=== PATIENT | female | born 1955 | race Caucasian/White ===

== ENCOUNTER → 2020-11-02 06:52 | Outpatient (CLI) | payer MEDICARE, MEDICAID, SELFPAY ==
[2020-10-05 11:33] VITALS: BMI 23.6
--- NOTE | 2020-11-02 06:58 | ECHOD_ITS ---
Reason For Study: CAD/ASHD Procedure This was a 2D Doppler, Color Flow transthoracic echocardiogram. Bubble study performed. Exam performed in department. Left Ventricle Normal LV size. Left ventricular systolic function is normal. The estimated ejection fraction is 65 %. No regional wall motion abnormalities noted. Right Ventricle Normal RV size. Normal systolic function. Atria Normal left atrium. Normal right atrium. Bubble contrast study negative for right to left interatrial shunt. Mitral Valve Normal mitral valve. Tricuspid Valve Normal tricuspid valve. Mild tricuspid valve insufficiency. Aortic Valve Normal aortic valve. Trisinus/trileaflet aortic valve. Pulmonic Valve Normal pulmonic valve. Great Vessels Normal aortic root. The pulmonary artery is normal size. Normal inferior vena cava. Pericardium/Pleural No pericardial effusion. Medication 22 gauge I.V. with prn adaptor inserted into right arm. Performed a rapid injection of agitated mix of 9 cc saline and 1cc air to assess for atrial septal defect. MMode/2D Measurements & Calculations LVIDd: 4.2 cm IVSd: 0.97 cm Ao root diam: 3.1 cm LVIDs: 2.7 cm LVPWd: 0.96 cm LA dimension: 3.5 cm RVDd: 3.3 cm FS: 36.6 % LAV(MOD-bp): 48.0 ml LA A4 area: 13.1 cm2 RA A4 area: 10.9 cm2 LAV(MOD-bp) Indexed: 31.0 ml/m2 LAV(MOD-sp2): 50.7 ml LAV(MOD-sp4): 34.1 ml Time Measurements MV dec time: 0.33 sec Doppler Measurements & Calculations MV E max yury: 44.5 cm/sec Lat Peak E' Yury: 5.4 cm/sec Med Peak E' Yury: 4.7 cm/sec MV A max yury: 86.1 cm/sec E/E' lat: 8.2 E/E' med: 9.5 MV E/A: 0.52 MV V2 max: 107.3 cm/sec MV P1/2t max yury: 70.1 cm/sec Ao V2 max: 126.8 cm/sec MV max P.6 mmHg MV P1/2t: 89.5 msec Ao max P.4 mmHg MV V2 mean: 58.1 cm/sec MV dec slope: 229.3 cm/sec2 MV mean P.6 mmHg MV V2 VTI: 22.0 cm MVA(P1/2t): 2.5 cm2 LV V1 max: 110.2 cm/sec PA V2 max: 94.4 cm/sec TR max yury: 199.3 cm/sec LV V1 max P.9 mmHg TR max P.9 mmHg ECHO/Echo Complete Interpretation Summary Normal LV size. Left ventricular systolic function is normal. The estimated ejection fraction is 65 %. Bubble contrast study negative for right to left interatrial shunt. Ordering Physician: Thomas Guerrero Referring Physician: ANNELIESE GUERRA Performed By: Tani Carmona RCS
--- NOTE | 2020-11-02 17:23 | STRESSREP ---
Stress Test Report Exercise myocardial perfusion stress test 65-year-old with a history of coronary calcification. Stress protocol: Resting EKG demonstrates normal sinus rhythm with a rate of 79 bpm normal intervals are noted resting blood pressures running 62/1 102 mmHg. The patient exercised according to regular Rudy protocol for total duration of 7 minutes and 31 seconds. The maximum heart rate attained was 137 bpm which was 87% of maximum predicted heart rate the maximum workload was 9.3 metabolic equivalents. At rest there were no ST or T wave changes noted to suggest ischemia at peak exercise upsloping ST changes were noted with did not meet the criteria for ischemia. No clinical angina was noted. The test was terminated due to the target heart rate being achieved and dyspnea. The peak blood pressure was 170/82 mmHg with a rate-pressure product of 20,000. Myocardial perfusion protocol. 10.8 mCi of technetium 99m sestamibi was injected at rest. The patient exercised according to regular Rudy protocol for total duration of 7-1/2 minutes and at peak exercise 31.9 mCi of technetium 99m sestamibi was injected stress images were obtained stress and rest images were reconstructed and compared in the short axis vertical long and horizontal long axis. Gated images were also obtained. Perfusion SPECT analysis: Review of the stress images demonstrated normal uptake of tracer noted in all areas of the myocardium. The resting images similarly demonstrated normal uptake of tracer noted in all areas of the myocardium. No areas of reversibility are noted to suggest ischemia and no previous infarct is noted. Gated SPECT analysis: The gated ejection fraction is noted to be 76%. Conclusion: Normal exercise myocardial perfusion stress test. Good functional aerobic opacity. No clinical angina noted. Preserved ejection fraction.
== END ==
PROVIDERS: PCP Family Medicine; Referring Provider Internal Medicine Cardiovascular Disease; Visit Provider Internal Medicine Cardiovascular Disease
DX: I25.10 Atherosclerotic heart disease of native coronary artery without angina pectoris (principal); Z86.73 Personal history of transient ischemic attack (TIA), and cerebral infarction without residual deficits
CPT/HCPCS: 78452; 93017; 93306; A9500; A4216

== ENCOUNTER → 2022-07-25 | Outpatient (CLI) | payer MEDICARE, MEDICAID, SELFPAY ==
[2022-07-25 16:48] LABS: Absolute Lymphocyte Count 2.31 X10^3/uL (0.83-4.51); Absolute Neutrophil Count 6.3 X10^3/uL (2.0-7.7); Basophil# 0.05 X10^3/uL; Basophil% 0.5 % (0-1); Eosinophil# 0.15 X10^3/uL; Eosinophils% 1.6 % (0-5); Hematocrit 39.7 % (37-47); Hemoglobin 13.7 g/dL (12.0-15.0); Lymphocyte # 2.31 X10^3/ul (0.83-4.51); Lymphocyte % 24.1 % (19-41); Mean Corp Hgb Conc 34.5 g/dL (32-36); Mean Corpuscular Volume 92.8 fL (81-99); Mean Platelet Vol. 10.1 fl (6.2-12.0); Monocyte# 0.76 X10^3/uL; Monocyte% 7.9 % (0-10); NRBC Flagged by Analyzer 0 % (0-5); Neutrophil % 65.7 % (47-70); Platelet Count 362 K/mm3 (150-450); RBC Distribution Width CV 12.8 % (11.6-14.6); RBC Distribution Width SD 43.8 fl (35.1-43.9); Red Blood Count 4.28 M/mm3 (4.2-5.4); White Blood Count 9.6 K/mm3 (4.4-11.0)
[2022-07-25 17:14] LABS: BNP,B-Type NATRIURETIC PEPTIDE 15.9 pg/mL (0-100)
[2022-07-25 17:15] LABS: Anion Gap 7 (5-15); BUN 24 mg/dL (7-18); BUN/Creat Ratio 29.8 RATIO (10-20); Calcium,Total 9.6 mg/dL (8.5-10.1); Chloride 106 mmol/L (98-107); EST Glomerular Filtration Rate 76 mL/min (>60); Est Glom Filt Rate - Afr Amer 92 mL/min (>60); Glucose 107 mg/dL (74-106); Sodium Level 139 mmol/L (136-145)
== END | disposition home or self-care (01) ==
LOC: LAB 16:22
PROVIDERS: PCP Family Medicine; Referring Provider Nurse Practitioner Gerontology; Visit Provider Nurse Practitioner Gerontology
DX: R06.00 Dyspnea, unspecified (principal)
CPT/HCPCS: 36415; 80048; 83880; 85025

== ENCOUNTER → 2022-08-16 | Outpatient (CLI) | payer MEDICARE, MEDICAID, SELFPAY ==
--- NOTE | 2022-08-16 10:41 | ECHOD_ITS ---
Version 2 Reason For Study: DYSPNEA Procedure This was a 2D Doppler, Color Flow transthoracic echocardiogram. Myocardial strain analysis was performed in this exam to aid in the assessment of cardiac function. Exam performed in department. Left Ventricle Normal LV size. Left ventricular systolic function is normal. The estimated ejection fraction is 58 %. Stage 1 diastolic dysfunction. No regional wall motion abnormalities noted. Right Ventricle Normal RV size. Normal systolic function. Atria Normal left atrium. Normal right atrium. Mitral Valve Normal mitral valve. Tricuspid Valve Normal tricuspid valve. Aortic Valve Normal aortic valve. Trisinus/trileaflet aortic valve. Pulmonic Valve Normal pulmonic valve. Great Vessels Normal aortic root. The pulmonary artery is normal size. Normal inferior vena cava. Pericardium/Pleural Trivial pericardial effusion. MMode/2D Measurements & Calculations LVIDd: 4.3 cm IVSd: 0.96 cm Ao root diam: 3.3 cm LVIDs: 3.0 cm LVPWd: 1.0 cm RVDd: 3.2 cm FS: 31.7 % LAV(MOD-bp): 42.6 ml LA A4 area: 15.8 cm2 LA dimension(2D): 3.6 cm LAV(MOD-bp) Indexed: 19.5 ml/m2 LAV(MOD-sp2): 40.8 ml LAV(MOD-sp4): 40.8 ml RA A4 area: 12.1 cm2 Time Measurements MV dec time: 0.19 sec Doppler Measurements & Calculations MV E max yury: 74.5 cm/sec Lat Peak E' Yury: 7.6 cm/sec Med Peak E' Yury: 6.1 cm/sec MV A max yury: 88.3 cm/sec E/E' lat: 9.9 E/E' med: 12.2 MV E/A: 0.84 MV dec slope: 394.3 cm/sec2 Ao V2 max: 131.4 cm/sec LV V1 max: 117.6 cm/sec Ao max P.9 mmHg LV V1 max P.5 mmHg Ao V2 mean: 91.2 cm/sec LV V1 mean P.9 mmHg Ao mean P.8 mmHg LV V1 mean: 80.2 cm/sec Ao V2 VTI: 30.5 cm LV V1 VTI: 26.8 cm AV (velocity ratio): 0.88 PA V2 max: 98.2 cm/sec PI dec slope: 151.5 cm/sec2 ECHO/Echo Complete Interpretation Summary Normal LV size. Left ventricular systolic function is normal. The estimated ejection fraction is 58 %. Trivial pericardial effusion. Stage 1 diastolic dysfunction. The global longitudinal strain is normal. The global longitudinal strain = -18. 3 % (normal). Ordering Physician: Elly Post Referring Physician: Rosy Lazo Performed By: Domo, Marley, RDCS, RVT
== END | disposition home or self-care (01) ==
LOC: CVS 10:40
PROVIDERS: PCP Family Medicine; Visit Provider Nurse Practitioner Gerontology
DX: R06.00 Dyspnea, unspecified (principal); I31.31 Malignant pericardial effusion in diseases classified elsewhere
CPT/HCPCS: 93306

== ENCOUNTER 2023-04-02 15:17 | Inpatient (IN) | payer MEDICARE, MEDICAID, SELFPAY ==
[2023-04-02] VITALS (9 sets, daily range): BP systolic 137–151; BP diastolic 81–112; PULSE 74–106; RESP 12–19; TEMP 36.6; O2SAT 94–99; BMI 24.5; BMI 23.8
--- NOTE | 2023-04-02 15:37 | EKG12_ITS ---
Test Reason : CP Blood Pressure : / mmHG Vent. Rate : 080 BPM Atrial Rate : 080 BPM P-R Int : 120 ms QRS Dur : 088 ms QT Int : 364 ms P-R-T Axes : 046 002 069 degrees QTc Int : 419 ms Normal sinus rhythm with sinus arrhythmia Nonspecific ST and T wave abnormality Abnormal ECG Confirmed by KEYLA BARBOSA, BRIDGETTE ([id number]), news editor FARA BELLAMY ([id number]) on 04/08/2023 10:34:49 AM Referred By: Confirmed By:REGINO RAMIRES MD
--- NOTE | 2023-04-02 15:40 | RAD_ITS ---
STUDY: X-RAY CHEST REASON FOR EXAM: Female, 67 years old. chest pain TECHNIQUE: AP portable COMPARISON: None. FINDINGS: The lungs are clear and expanded. There is no demonstrated pleural abnormality. Normal size heart. Normal mediastinum and jj. Normal visualized pulmonary arteries. Mildly calcified aortic arch and descending thoracic aorta. Normal visualized thoracic spine. Normal visualized ribs, clavicles, and shoulders. There is no demonstrated abnormality of the visualized soft tissue structures of the upper abdomen. RAD/Chest 1 View (Portable) IMPRESSION: No acute cardiopulmonary pathology Electronically Signed: Federico Guzmán MD at 16:26 EST ,
--- NOTE | 2023-04-02 15:43 | ED.VIS.CHEST ---
HPI History of Present Illness Chief Complaint: Chest Pain Informant: patient Onset/Context/Timing Onset: Days (5) Activity at onset: gradual and onset Timing: Continuous Quality: Positive for Heaviness and Pressure Location: Substernal Current Severity: Moderate Maximum Severity: Severe Worsened By: Exertion and - (Lying supine); Not Worsened By Breathing Relieved By: Nothing Associated Symptoms: Positive for Dyspnea; Negative for Nausea, Vomiting, Diaphoresis, Cough, Fever or Lightheadedness Narrative Narrative: Patient has been having nonpleuritic substernal chest heaviness and pressure since this past week. The day after having the pain started, she was seen at an outside ER, [place], [place], told her enzymes were negative her EKG and chest x-ray were okay and she was stable to follow-up. She been having discomfort ever since. She states that at 1 point was radiating into her left upper extremity for the most part has not done that. 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 Patient does not have a history of coronary disease that she knows of. 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 She states she also has a history of reflux and a hiatal hernia, initially for this discomfort she was using Mylanta and asked to be put on additional Prilosec, she states that helped a little. The discomfort has persisted. She has been dyspneic with exertion for the last couple months. She denies any leg edema or orthopnea. No cough or fevers. [facility] Medical History Asthma Crenshaw esophagus COPD (chronic obstructive pulmonary disease) Coronary artery calcification seen on CAT scan (07/2020) Emphysema of lung GERD (gastroesophageal reflux disease) Hiatal hernia History of Lindo's palsy History of bronchitis History of CVA (cerebrovascular accident) History of kidney stones History of Lyme disease History of pleural effusion History of pneumonia History of TIA (transient ischemic attack) (06/2018) Hyperlipidemia IBS (irritable bowel syndrome) Insomnia Osteoarthritis Panlobular emphysema Peptic ulcer disease Pericardial effusion PTSD (post-traumatic stress disorder) Pulmonary nodule Thyroid nodule Home Medications albuterol sulfate 90 mcg/actuation aerosol inhaler 2 puff inhalation Q6H PRN 09/23/20 [History Last Taken Unknown] baclofen 10 mg tablet 10 mg PO QHS 09/23/20 [History Last Taken Unknown] fluticasone 500 mcg-salmeterol 50 mcg/dose blistr powdr for inhalation (Advair Diskus) 1 inh inhalation BID 09/23/20 [History Last Taken Unknown] magnesium oxide 500 mg capsule 500 mg PO DAILY 09/23/20 [History Last Taken Unknown] meloxicam 15 mg tablet (Mobic) 15 mg PO DAILY 09/23/20 [History Last Taken Unknown] montelukast 10 mg tablet (Singulair) 10 mg PO DAILY 09/23/20 [History Last Taken Unknown] omeprazole 20 mg tablet,delayed release 20 mg PO DAILY 09/23/20 [History Last Taken Unknown] vitamin B complex (B Complex-Vitamin B12 tablet) 1 tab PO DAILY 09/23/20 [History Last Taken Unknown] dicyclomine 10 mg capsule 10 mg PO DAILY PRN 10/05/20 [History Last Taken Unknown] vitamin E 200 unit capsule 200 unit PO DAILY 10/05/20 [History Last Taken Unknown] aspirin 81 mg tablet,delayed release (Adult Aspirin Regimen) 81 mg PO .qod 02/16/21 [History Last Taken Unknown] ipratropium 0.5 mg-albuterol 3 mg (2.5 mg base)/3 mL nebulization soln 3 ml continuous nebulization BID 11/13/21 [History Last Taken Unknown] calcium carbonate 600 mg-vitamin D3 25 mcg (1,000 unit) capsule 2 cap PO DAILY 11/14/21 [History Last Taken Unknown] cholecalciferol (vitamin D3) 125 mcg (5,000 unit) capsule 125 mcg PO DAILY 11/14/21 [History Last Taken Unknown] amlodipine 2.5 mg tablet 5 mg PO DAILY 07/25/22 [History Last Taken Unknown] coenzyme Q10 75 mg capsule (Ultra CoQ10) 100 mg PO DAILY 07/25/22 [History Last Taken Unknown] diphenhydramine HCl 25 mg capsule (Benadryl) 25 mg PO QHS PRN 07/25/22 [History Last Taken Unknown] garlic 1,000 mg capsule (garlic oil) 2,000 mg PO DAILY 07/25/22 [History Last Taken Unknown] ipratropium 0.5 mg-albuterol 3 mg (2.5 mg base)/3 mL nebulization soln 3 ml inhalation Q6H PRN 07/25/22 [History Last Taken Unknown] rosuvastatin 20 mg tablet (Crestor) 20 mg PO DAILY 07/25/22 [History Last Taken Unknown] Allergy/AdvReac Type Severity Reaction Status Date / Time epinephrine Allergy Severe Tachychardi Verified 04/02/23 15:38 a/Syncope pregabalin [From Lyrica] Allergy Severe Facial&Oral Verified 04/02/23 15:38 Swelling tizanidine [From Zanaflex] Allergy Severe Anaphylaxis Verified 04/02/23 15:38 atorvastatin [From Lipitor] AdvReac Severe Pain in BL Verified 04/02/23 15:38 arms hydroxyzine [From Vistaril] AdvReac Severe Inrease in Verified 04/02/23 15:38 BP Sulfa (Sulfonamide AdvReac Severe Anaphylaxis Verified 04/02/23 15:38 Antibiotics) temazepam [From Restoril] AdvReac Severe Facial & Verified 04/02/23 15:38 Oral Swelling zafirlukast [From Accolate] AdvReac Severe Abdominal Verified 04/02/23 15:38 pain & SOB furosemide [From Lasix] AdvReac Unknown Muscle Verified 04/02/23 15:38 Cramps misoprostol [From Arthrotec] AdvReac Unknown Liver Verified 04/02/23 15:38 Damage morphine AdvReac Unknown 'Insane' Verified 04/02/23 15:38 oseltamivir [From Tamiflu] AdvReac Unknown strips Verified 04/02/23 15:38 skin off throat' diclofenac AdvReac unkown Verified 04/02/23 15:38 [From Inflatherm (diclofenac-trolam)] trolamine salicylate AdvReac unkown Verified 04/02/23 15:38 [From Inflatherm (diclofenac-trolam)] Family History Mother COPD (chronic obstructive pulmonary disease) Lupus Father Glioblastoma Grandmother Pancreatic cancer Grandmother Breast cancer Grandfather Heart disease Aunt Cancer Aunt Cancer Surgical History History of breast surgery History of section History of cholecystectomy History of colonoscopy History of esophagogastroduodenoscopy History of eye surgery History of facial surgery History of herniorrhaphy History of repair of rectocele History of tonsillectomy History of vaginal surgery Social History Smoking Status: Former smoker pack-years: 31 Tobacco: How many years used: 21 Electronic Cigarette Use: not used how long ago did patient quit smoking: Quit in 1989 second hand exposure: Yes alcohol intake: current alcohol intake frequency: a few times a month Alcohol type: wine substance use type: does not use ROS ROS ED Constitutional Constitutional ED: Denies chills or fever(s) Eyes Eyes: Denies change in vision or diplopia ENT ENT ED: Denies rhinorrhea or sore throat Cardiovascular Cardiovascular: Reports chest pain; Denies orthopnea or palpitations Respiratory/Chest Respiratory/Chest: Reports dyspnea on exertion; Denies cough or orthopnea Gastrointestinal Gastrointestinal: Denies abdominal pain, diarrhea, nausea or vomiting Genitourinary Genitourinary ED: Denies dysuria or hematuria Musculoskeletal Musculoskeletal: Denies back pain or neck pain Integumentary Denies abscess or rash Neurologic Neurologic: Denies headache(s), paresthesias or weakness Psychiatric Psychiatric: Denies suicidal ideation or suicidal thoughts EXAM Physical Exam Const Vital Signs: 04/02/23 15:17 04/02/23 15:17 04/02/23 15:36 Temperature 97.8 F Temperature Source Temporal Pulse Rate 87 84 Respiratory Rate 18 19 H Respiratory Effort Short of Breath Blood Pressure 138/99 H 137/112 H Blood Pressure Mean 112 120 Pulse Ox 99 98 Oxygen Delivery Method Room Air 04/02/23 15:37 04/02/23 15:47 04/02/23 16:16 Temperature Temperature Source Pulse Rate 80 79 Respiratory Rate 12 Respiratory Effort Blood Pressure 142/92 H 150/82 H Blood Pressure Mean 104 Pulse Ox 98 Oxygen Delivery Method Room Air Room Air Positive well nourished and well developed General Appearance ED: well developed and NAD HEENT Reports moist mucous membranes normocephalic and atraumatic Eyes PERRL and EOMs intact bilaterally Neck full ROM, supple and no JVD Resp normal respiratory effort and clear to auscultation bilaterally Cardio regular rate, regular rhythm and no murmurs GI non-tender and non-distended Auscultation: normoactive bowel sounds Palpation: soft Back/Spine no CVA tenderness General Back: other FROM Extremity normal to inspection General Extremety ED: Negative for edema, pulses abnormal or tenderness General Extremity: Negative for edema or pulses abnormal Neuro oriented x3, CN's II-XII intact bilaterally and no sensory deficits noted Sensorium / Orientation: awake and alert Motor Exam: strength 5/5 throughout Skin no rashes or lesions noted and no wounds Heart Score History: Highly Suspicious ECG: Nonspecific Repolarization Age: >/= 65 years Risk Factors: 1 or 2 Risk Factors Troponin: >/=3 x Normal Limit Score: 8 MDM MDM MDM Narrative Medical decision making narrative: Chest x-ray may show some ST depressions in the septal lateral leads, but no reciprocal changes to suggest a STEMI. Her HS troponin I came back elevated at almost 5000, much higher than her equivalent high-sensitivity troponin T measurements were 3-4 days ago. Her BNP is a little elevated nonspecific. She clinically is not in failure. This is all consistent with a NSTEMI. 1 view chest x-ray on my interpretation appears normal, I do not not see evidence of cardiomegaly to suggest a big pericardial effusion, and she does not have any clinical exam signs of tamponade. After 1 sublingual nitroglycerin, she has chest pain-Free, paste is placed on her chest, and after discussing with Dr. Goodrich, we will place her on heparin drip and admit her to the hospital. History & Record Review Additional record(s) reviewed:: Prior outpatient record (From ED visit [facility] 03/29/2023, D-dimer within normal limits, proBNP 528, high-sensitivity troponin T measurements 48, 45, 44) Lab Data Attestation: I reviewed the patient's lab results. Labs: Laboratory Results - last 24 hr 04/02/23 15:37 WBC 12.0 H RBC 4.53 Hgb 14.3 Hct 43.3 MCV 95.6 MCH 31.6 MCHC 33.0 RDW Std Deviation 46.4 H RDW Coeff of Day 13.1 Plt Count 391 MPV 10.3 Immature Gran % (Auto) 0.200 Neut % (Auto) 74.2 H Lymph % (Auto) 18.0 L [place] % (Auto) 5.7 Eos % (Auto) 1.4 Baso % (Auto) 0.5 Absolute Neuts (auto) 8.9 H Absolute Lymphs (auto) 2.17 Nucleated RBC % 0 Sodium 139 Potassium 3.7 Chloride 106 Carbon Dioxide 26.0 Anion Gap 7 BUN 14 Creatinine 0.80 Estim Creat Clear Calc 52.20 Est GFR (MDRD) Af Amer 92 Est GFR (MDRD) Non-Af 76 BUN/Creatinine Ratio 17.4 Glucose 108 H Calcium 10.0 Troponin I High Sens 4921 H* B-Natriuretic Peptide 354.3 H Radiography Diagnostic Testing: Clinical Impression(s) from Imaging Studies Chest X-Ray 04/02/23 15:40 IMPRESSION: No acute cardiopulmonary pathology Electronically Signed: Federico Guzmán MD at 16:26 EST Reading Location ID and State: [address] [place] [address] Tel , Service support , Rhythm Strip Rhythm Strip: Sinus Rhythm Rate: 80 Ectopy: None EKG Initial EKG: Attestation: I personally reviewed and interpreted this EKG as follows: Interpretation: Sinus Rhythm, No Acute Injury Pattern and Non-Specific ST Changes (V3-V6) Management Discussion w/another healthcare provider: Hospitalist and Meteorology Teacher (cardiology Joleen) Critical Care Time Critical Care Time: Yes Critical care time (excluding procedures): 30-74 minutes (35 min), Including time spent:, Discussing w/Patient &/or Family/Paster Hat Lining, Discussing w/Consultants, Arranging Admission or Transfer and Performing Direct Patient Care at Bedside Discharge Plan Dx/Rx/DC Orders Clinical Impression: Non-ST elevation AL (NSTEMI) Disposition Disposition: Acute Care Hospital [facility]
[2023-04-02] MEDS: Aspirin 81 MG TAB.CHEW 324 MG PO (15:46)
[2023-04-02] MEDS: Nitroglycerin SL (ED/IMG/CATH) 0.4 MG TABLET SL (15:47)
[2023-04-02 15:48] LABS: Absolute Lymphocyte Count 2.17 X10^3/uL (0.83-4.51); Absolute Neutrophil Count 8.9 X10^3/uL (2.0-7.7); Basophil# 0.06 X10^3/uL; Basophil% 0.5 % (0-1); Eosinophil# 0.17 X10^3/uL; Eosinophils% 1.4 % (0-5); Hematocrit 43.3 % (37-47); Hemoglobin 14.3 g/dL (12.0-15.0); Lymphocyte # 2.17 X10^3/ul (0.83-4.51); Mean Corpuscular Hgb 31.6 pg (27.0-32.0); Mean Corpuscular Volume 95.6 fL (81-99); Mean Platelet Vol. 10.3 fl (6.2-12.0); Monocyte# 0.68 X10^3/uL; Monocyte% 5.7 % (0-10); NRBC Flagged by Analyzer 0 % (0-5); Neutrophil # 8.92 X10^3/uL (2.7-7.7); Neutrophil % 74.2 % (47-70); Platelet Count 391 K/mm3 (150-450); RBC Distribution Width CV 13.1 % (11.6-14.6); RBC Distribution Width SD 46.4 fl (35.1-43.9); Red Blood Count 4.53 M/mm3 (4.2-5.4)
[2023-04-02 16:09] LABS: BNP,B-Type NATRIURETIC PEPTIDE 354.3 pg/mL (0-100)
[2023-04-02 16:16] LABS: Anion Gap 7 (5-15); BUN 14 mg/dL (7-18); BUN/Creat Ratio 17.4 RATIO (10-20); Chloride 106 mmol/L (98-107); EST Glomerular Filtration Rate 76 mL/min (>60); Est Glom Filt Rate - Afr Amer 92 mL/min (>60); Glucose 108 mg/dL (74-106); Potassium 3.7 mmol/L (3.5-5.1); Sodium Level 139 mmol/L (136-145); Troponin-I HS (w/2H Reflex) 4921 pg/mL (3.0-54.0)
[2023-04-02] MEDS: Heparin Injection (Vial) 5,000 UNIT/ML VIAL 3500 UNIT IV (16:37)
[2023-04-02] MEDS: Nitroglycerin Oint 1 INCH PACKET TD (16:37)
[2023-04-02] MEDS: HEPARIN/D5w 25,000 UNITS 25,000 UNITS/250 ML IV.SOLN. 7 UNITS CONT INF (16:38)
--- NOTE | 2023-04-02 16:40 | PCM.HP.STD ---
HPI - General General Date of Admission: 04/02/23 HPI Narrative GRICELDA LYNCH, is a 67 F who presents to the hospital with progressive worsening of chest pressure/pain. She states that she first started feeling odd on but thought that it was due to her hiatal hernia and gastric reflux she then noticed on Saturday that it had gotten worse and was spreading up her right and left chest into her right and left arm. She went to an outside hospital and EKG was unremarkable and she states that the 3 troponins obtained were all normal she did notice at that time that her BNP was a little bit elevated but they discharged her home. Over the weekend she had no significant changes to her symptoms and then on Saturday and Saturday she started noticing just more chest pressure and more fatigue so she called her PCP on Saturday who ran some lab work that was not completely out of the ordinary and then she called her alignment mechanic today but while waiting to hear back decided to present to the ER. In the ER she had a troponin of 5000 with a nonischemic EKG. Cardiology was consulted and started her on heparin drip for non-STEMI. She did get Nitropaste placed and that resolved her symptoms she is now pain-free. [facility] Medical History Asthma Crenshaw esophagus COPD (chronic obstructive pulmonary disease) Coronary artery calcification seen on CAT scan (07/2020) Emphysema of lung GERD (gastroesophageal reflux disease) Hiatal hernia History of Lindo's palsy History of bronchitis History of CVA (cerebrovascular accident) History of kidney stones History of Lyme disease History of pleural effusion History of pneumonia History of TIA (transient ischemic attack) (06/2018) Hyperlipidemia IBS (irritable bowel syndrome) Insomnia Osteoarthritis Panlobular emphysema Peptic ulcer disease Pericardial effusion PTSD (post-traumatic stress disorder) Pulmonary nodule Thyroid nodule Home Medications albuterol sulfate 90 mcg/actuation aerosol inhaler 2 puff inhalation Q6H PRN SHORTNESS OF BREATH 09/23/20 [History Last Taken Unknown] baclofen 10 mg tablet 10 mg PO QHS MUSCLE SPASMS 09/23/20 [History Last Taken 04/01/23] fluticasone 500 mcg-salmeterol 50 mcg/dose blistr powdr for inhalation (Advair Diskus) 1 inh inhalation BID SHORTNESS OF BREATH 09/23/20 [History Last Taken 04/02/23] magnesium oxide 500 mg capsule 500 mg PO QHS SUPPLEMENT 09/23/20 [History Last Taken 04/01/23] meloxicam 15 mg tablet (Mobic) 15 mg PO QHS PAIN/SWELLING 09/23/20 [History Last Taken 04/01/23] montelukast 10 mg tablet (Singulair) 10 mg PO DAILY ALLERGIES 09/23/20 [History Last Taken 04/02/23] vitamin B complex (B Complex-Vitamin B12 tablet) 1 tab PO DAILY SUPPLEMENT 09/23/20 [History Last Taken 04/02/23] vitamin E 200 unit capsule 200 unit PO DAILY SUPPLEMENT 10/05/20 [History Last Taken 04/02/23] aspirin 81 mg tablet,delayed release (Adult [facility]in Regimen) [facility] [History Last Taken 03/31/23] calcium carbonate 600 mg-vitamin D3 25 mcg (1,000 unit) capsule 2 cap PO DAILY SUPPLEMENT 11/14/21 [History Last Taken 04/02/23] cholecalciferol (vitamin D3) 125 mcg (5,000 unit) capsule 125 mcg PO DAILY SUPPLEMENT 11/14/21 [History Last Taken 04/02/23] coenzyme Q10 75 mg capsule (Ultra CoQ10) 75 mg PO DAILY SUPPLEMENT 07/25/22 [History Last Taken 04/02/23] diphenhydramine HCl 25 mg capsule (Benadryl) 25 mg PO QHS SLEEP 07/25/22 [History Last Taken 04/01/23] garlic 1,000 mg capsule (garlic oil) 2,000 mg PO DAILY SUPPLEMENT 07/25/22 [History Last Taken 04/02/23] rosuvastatin 20 mg tablet (Crestor) 20 mg PO QHS CHOLESTEROL 07/25/22 [History Last Taken 04/01/23] albuterol sulfate 2.5 mg/3 mL (0.083 %) solution for nebulization 2.5 mg inhalation BID SHORTNESS OF BREATH 04/02/23 [History Last Taken 04/02/23] amlodipine 5 mg tablet 5 mg PO QHS BLOOD PRESSURE 04/02/23 [History Last Taken 04/01/23] carboxymethylcellulose 0.5 %-glycerin 0.9 % eye drops (Lubricant Eye (cmc-glycerin)) 1 drp EACH EYE QHS DRY EYE RELIEF 04/02/23 [History Last Taken 04/01/23] diazepam 2 mg tablet 1 mg PO DAILY PRN ANXIETY 04/02/23 [History Last Taken 04/01/23] ipratropium bromide 0.02 % solution for inhalation 0.5 mg inhalation BID SHORTNESS OF BREATH 04/02/23 [History Last Taken 04/02/23] omeprazole 20 mg capsule,delayed release 20 mg PO DAILY ACID REFLUX 04/02/23 [History Last Taken 04/02/23] Allergy/AdvReac Type Severity Reaction Status Date / Time epinephrine Allergy Severe Tachychardi Verified 04/02/23 15:38 a/Syncope pregabalin [From Lyrica] Allergy Severe Facial&Oral Verified 04/02/23 15:38 Swelling tizanidine [From Zanaflex] Allergy Severe Anaphylaxis Verified 04/02/23 15:38 atorvastatin [From Lipitor] AdvReac Severe Pain in BL Verified 04/02/23 15:38 arms hydroxyzine [From Vistaril] AdvReac Severe Inrease in Verified 04/02/23 15:38 BP Sulfa (Sulfonamide AdvReac Severe Anaphylaxis Verified 04/02/23 15:38 Antibiotics) temazepam [From Restoril] AdvReac Severe Facial & Verified 04/02/23 15:38 Oral Swelling zafirlukast [From Accolate] AdvReac Severe Abdominal Verified 04/02/23 15:38 pain & SOB furosemide [From Lasix] AdvReac Unknown Muscle Verified 04/02/23 15:38 Cramps misoprostol [From Arthrotec] AdvReac Unknown Liver Verified 04/02/23 15:38 Damage morphine AdvReac Unknown 'Insane' Verified 04/02/23 15:38 oseltamivir [From Tamiflu] AdvReac Unknown strips Verified 04/02/23 15:38 skin off throat' diclofenac AdvReac unkown Verified 04/02/23 15:38 [From Inflatherm (diclofenac-trolam)] trolamine salicylate AdvReac unkown Verified 04/02/23 15:38 [From Inflatherm (diclofenac-trolam)] Family History Mother COPD (chronic obstructive pulmonary disease) Lupus Father Glioblastoma Grandmother Pancreatic cancer Grandmother Breast cancer Grandfather Heart disease Aunt Cancer Aunt Cancer Surgical History History of breast surgery History of section History of cholecystectomy History of colonoscopy History of esophagogastroduodenoscopy History of eye surgery History of facial surgery History of herniorrhaphy History of repair of rectocele History of tonsillectomy History of vaginal surgery Social History Smoking Status: Former smoker pack-years: 31 Tobacco: How many years used: 21 Electronic Cigarette Use: not used how long ago did patient quit smoking: Quit in 1989 second hand exposure: Yes alcohol intake: current alcohol intake frequency: a few times a month Alcohol type: wine substance use type: does not use ROS Constitutional Constitutional: Reports fatigue; Denies chills, fever(s) or malaise Eyes Eyes: Denies blurry vision ENT HEENT: Denies headache(s) or nasal discharge Cardiovascular Cardiovascular: Reports chest pain and dyspnea on exertion; Denies syncope Respiratory/Chest Respiratory/Chest: Reports shortness of breath at rest; Denies cough or shortness of breath with exertion Gastrointestinal Gastrointestinal: Denies constipation, diarrhea, nausea or vomiting Genitourinary Genitourinary: Denies dysuria Neurologic Neurologic: Denies focal weakness, numbness or tremor(s) Psychiatric Psychiatric: Denies anxiety or depression Vital Signs Vital Signs Vital Signs: 04/02/23 15:17 04/02/23 15:17 04/02/23 15:36 Temperature 97.8 F Temperature Source Temporal Pulse Rate 87 84 Respiratory Rate 18 19 H Respiratory Effort Short of Breath Blood Pressure 138/99 H 137/112 H Blood Pressure Mean 112 120 Pulse Ox 99 98 Oxygen Delivery Method Room Air 04/02/23 15:37 04/02/23 15:47 04/02/23 16:16 Temperature Temperature Source Pulse Rate 80 79 Respiratory Rate 12 Respiratory Effort Blood Pressure 142/92 H 150/82 H Blood Pressure Mean 104 Pulse Ox 98 Oxygen Delivery Method Room Air Room Air Weight Weight: 129 lb 14.4 oz Body Mass Index (BMI) 24.5 Physical Exam Narrative General: Alert, Oriented x3, Cooperative, No apparent distress HEENT: Atraumatic, PERRLA, EOMI, Normocephalic Oral: Moist Mucosa Neck: Supple, No JVD Lungs: Diminished, Normal air movement, No rhonchi, No wheeze, fine bilateral crackles Cardiovascular: Regular rate, Regular Rhythm, Normal S1, Normal S2, No murmurs Abdomen: Soft, Non Tender, Non-Distended, No Hepato-splenomegaly Extremities: No edema, Capillary Refill Less than 3 Seconds Skin: No rashes, No breakdown Musculoskeletal: No Tenderness to Palpation of Joints or Extremities Neurological: Moves all extremities, Sensory exam intact to light touch and pain Psych/Mental Status: Normal Affect, Appropriate Results Lab / Micro Data 04/02/23 15:37 04/02/23 15:37 Labs: Laboratory Results - last 24 hr 04/02/23 15:37: WBC 12.0 H, RBC 4.53, Hgb 14.3, Hct 43.3, MCV 95.6, MCH 31.6, MCHC 33.0, RDW Std Deviation 46.4 H, RDW Coeff of Day 13.1, Plt Count 391, MPV 10.3, Immature Gran % (Auto) 0.200, Neut % (Auto) 74.2 H, Lymph % (Auto) 18.0 L, Aiken % (Auto) 5.7, Eos % (Auto) 1.4, Baso % (Auto) 0.5, Absolute Neuts (auto) 8.9 H, Absolute Lymphs (auto) 2.17, Nucleated RBC % 0, Sodium 139, Potassium 3.7, Chloride 106, Carbon Dioxide 26.0, Anion Gap 7, BUN 14, Creatinine 0.80, Estim Creat Clear Calc 52.20, Est GFR (MDRD) Af Amer 92, Est GFR (MDRD) Non-Af 76, BUN/Creatinine Ratio 17.4, Glucose 108 H, Calcium 10.0, Troponin I High Sens 4921 H*, B-Natriuretic Peptide 354.3 H Rhythm Strip Rhythm Strip: Sinus Rhythm Rate: 80 Ectopy: None Radiology Impression Chest X-Ray 04/02/23 15:40 IMPRESSION: No acute cardiopulmonary pathology Electronically Signed: Federico Guzmán MD at 16:26 EST Reading Location ID and State: [facility] / [place] Tel , Service support , Assessment & Plan Assessment/Plan (1) Non-ST elevation [place] (NSTEMI): PLAN: Plan 1. Non-STEMI/HTN/HLD ? Blood pressure stable, can resume her home blood pressure medications ? We will monitor and make adjustments as necessary ? Continue with the heparin drip ? We will consult cardiology ? We will obtain an echo ? She does have some calcium deposits in her coronary arteries per previous studies 2. Asthma with a history of pulmonary nodules ? 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 Can continue with her inhalers 3. Anxiety/depression ? Stable ? Continue with her home medications 4. 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
[2023-04-02 16:46] LABS: Prothrombin Time (Protime)PT. 13.1 SECONDS (11.7-14.9)
[2023-04-02 17:46] LABS: Reflex Troponin-HS? (from REC) Y
[2023-04-02 18:25] LABS: Troponin-I HS 6185 pg/mL (3.0-54.0)
--- NOTE | 2023-04-02 19:18 | ECHOD_ITS ---
Reason For Study: CHEST PAIN Procedure This was a 2D Doppler, Color Flow transthoracic echocardiogram. Exam performed portable in patient room. Left Ventricle Normal LV size. The estimated ejection fraction is 45-50 %. No evidence for diastolic dysfunction. Infero-Basal: Normal. Right Ventricle Normal RV size. Atria Normal left atrium. Normal right atrium. No doppler evidence for ASD. Mitral Valve There is no mitral valve stenosis. No mitral valve insufficiency. Tricuspid Valve There is no tricuspid stenosis. Unable to estimate RV systolic pressure due to inadequate jet, pulmonary artery pressure probably normal. Aortic Valve Trisinus/trileaflet aortic valve. Aortic sclerosis, no stenosis. There is no aortic stenosis. No aortic valve insufficiency. Pulmonic Valve There is no pulmonic valvular stenosis. No pulmonic valve insufficiency. Great Vessels Normal aortic root. Pericardium/Pleural No pericardial effusion. MMode/2D Measurements & Calculations LVIDd: 4.2 cm IVSd: 0.88 cm Ao root diam: 2.5 cm LVIDs: 3.3 cm LVPWd: 0.90 cm RVDd: 2.5 cm FS: 21.2 % LAV(MOD-sp4): 34.6 ml LVAd ap4: 24.5 cm2 LVAd ap2: 19.5 cm2 LVLd ap4: 7.1 cm LVLd ap2: 7.0 cm EDV(MOD-sp4): 69.9 ml EDV(MOD-sp2): 44.9 ml EDV(sp4-el): 71.7 ml EDV(sp2-el): 45.6 ml LVAs ap4: 16.0 cm2 LVAs ap2: 12.4 cm2 LVLs ap4: 6.0 cm LVLs ap2: 6.0 cm ESV(MOD-sp4): 35.4 ml ESV(MOD-sp2): 22.5 ml ESV(sp4-el): 36.0 ml ESV(sp2-el): 21.8 ml EF(MOD-sp4): 49.4 % EF(MOD-sp2): 49.8 % EF(sp4-el): 49.8 % SV(MOD-sp4): 34.5 ml SV(MOD-sp2): 22.3 ml SV(sp4-el): 35.7 ml LA dimension(2D): 3.1 cm LA A4 area: 14.3 cm2 RA A4 area: 8.1 cm2 TAPSE: 2.1 cm Time Measurements MV dec time: 0.14 sec Doppler Measurements & Calculations MV E max yury: 58.3 cm/sec Lat Peak E' Yury: 7.6 cm/sec Med Peak E' Yury: 6.3 cm/sec MV A max yury: 105.2 cm/sec E/E' lat: 7.6 E/E' med: 9.3 MV E/A: 0.55 Ao V2 max: 119.4 cm/sec LV V1 max: 89.2 cm/sec PA V2 max: 81.7 cm/sec Ao max P.7 mmHg LV V1 max P.2 mmHg PA V2 mean: 62.4 cm/sec Ao V2 mean: 84.1 cm/sec LV V1 mean P.7 mmHg Ao mean P.2 mmHg LV V1 mean: 63.4 cm/sec Ao V2 VTI: 22.6 cm LV V1 VTI: 15.5 cm AV (velocity ratio): 0.69 TR max yury: 199.7 cm/sec TR max P.0 mmHg ECHO/Echo Complete Interpretation Summary There is a moderate sized posterior and lateral wall motion abnormality with hy pokinesis of the segments. No evidence for diastolic dysfunction. The estimated ejection fraction is 45-50 %. Ordering Physician: Vladimir Bean Referring Physician: Rosy Lazo Performed By: Marley Oliveros, RDCS, RVT
--- NOTE | 2023-04-02 19:56 | EKG12_ITS ---
Test Reason : AM EKG Blood Pressure : / mmHG Vent. Rate : 085 BPM Atrial Rate : 085 BPM P-R Int : 158 ms QRS Dur : 082 ms QT Int : 374 ms P-R-T Axes : 062 -01 123 degrees QTc Int : 445 ms Normal sinus rhythm Nonspecific ST and T wave abnormality Abnormal ECG When compared with ECG of 02-APR-2023 20:30, MANUAL COMPARISON REQUIRED, DATA IS UNCONFIRMED Confirmed by KEYLA BARBOSA, BRIDGETTE ([id number]), writer editor FARA BELLAMY ([id number]) on 04/08/2023 10:58:47 AM Referred By: Confirmed By:REGINO RAMIRES MD
[2023-04-02] MEDS: Ipratropium/Albuterol Sulfate 3 ML AMPUL.NEB INHALATION (20:39)
[2023-04-02 21:35] LABS: Partial Thromboplast Time 72.2 Seconds (24.1-36.2)
[2023-04-02] MEDS: Rosuvastatin 20 MG Tablet PO (21:53)
[2023-04-02] MEDS: amLODIPine 5 MG Tablet PO (21:53)
[2023-04-02] MEDS: DiphenhydrAMINE 25 MG Capsule PO (21:53)
[2023-04-02] MEDS: Meloxicam 15 MG Tablet PO (21:53)
[2023-04-02] MEDS: Baclofen 10 MG Tablet PO (21:53)
[2023-04-02 22:08] LABS: Troponin-I HS 7806 pg/mL (3.0-54.0)
[2023-04-03] VITALS (18 sets, daily range): BP systolic 97–152; BP diastolic 75–106; PULSE 80–99; RESP 12–18; TEMP 35.8–37.1; O2SAT 97–100; BMI 23.8
[2023-04-03 04:10] LABS: Absolute Lymphocyte Count 2.74 X10^3/uL (0.83-4.51); Absolute Neutrophil Count 6.4 X10^3/uL (2.0-7.7); Basophil# 0.04 X10^3/uL; Basophil% 0.4 % (0-1); Eosinophil# 0.25 X10^3/uL; Eosinophils% 2.4 % (0-5); Hematocrit 39.5 % (37-47); Hemoglobin 13.4 g/dL (12.0-15.0); Lymphocyte # 2.74 X10^3/ul (0.83-4.51); Lymphocyte % 26.8 % (19-41); Mean Corp Hgb Conc 33.9 g/dL (32-36); Mean Corpuscular Hgb 32.4 pg (27.0-32.0); Mean Corpuscular Volume 95.6 fL (81-99); Mean Platelet Vol. 10.6 fl (6.2-12.0); Monocyte# 0.74 X10^3/uL; Monocyte% 7.2 % (0-10); NRBC Flagged by Analyzer 0 % (0-5); Neutrophil # 6.44 X10^3/uL (2.7-7.7); Platelet Count 334 K/mm3 (150-450); RBC Distribution Width CV 13.2 % (11.6-14.6); RBC Distribution Width SD 46.1 fl (35.1-43.9); Red Blood Count 4.13 M/mm3 (4.2-5.4); White Blood Count 10.2 K/mm3 (4.4-11.0)
[2023-04-03 04:36] LABS: Partial Thromboplast Time 40.5 Seconds (24.1-36.2)
[2023-04-03 04:49] LABS: Troponin-I HS 7434 pg/mL (3.0-54.0)
[2023-04-03] MEDS: Heparin Injection (Vial) 5,000 UNIT/ML VIAL IV (05:00)
[2023-04-03 05:11] LABS: Anion Gap 8 (5-15); BUN 14 mg/dL (7-18); BUN/Creat Ratio 19.7 RATIO (10-20); Chloride 106 mmol/L (98-107); Creatinine, Serum 0.71 mg/dL (0.55-1.02); EST Glomerular Filtration Rate 88 mL/min (>60); Est Glom Filt Rate - Afr Amer 106 mL/min (>60); Estimated Creatinine Clearance 41.76 ml/min; Glucose 110 mg/dL (74-106); Potassium 3.6 mmol/L (3.5-5.1); Sodium Level 140 mmol/L (136-145)
[2023-04-03] MEDS: Ipratropium/Albuterol Sulfate 3 ML AMPUL.NEB INHALATION (06:42)
--- NOTE | 2023-04-03 08:44 | PCM.PN.HOSP ---
Reason for Visit Reason for Visit: Diagnoses Non-ST elevation (NSTEMI) myocardial infarction (04/02/23) Subjective Subjective SOB at baseline, not presently having chest pain, feeling better than yesterday Objective Data Objective Data Vital Signs: Vital Signs Temp Pulse Resp BP Pulse Ox O2 Del Method 97.2 F L 94 16 131/96 H 99 Room Air 04/03/23 08:12 04/03/23 08:12 04/03/23 08:12 04/03/23 08:12 04/03/23 08:12 04/03/23 08:12 Oxygen Delivery Method Room Air Weight: 57.1 kg Body Mass Index (BMI) 23.8 Intake & Output: Intake and Output for Last 24 Hours 04/01/23 04/02/23 04/03/23 23:59 23:59 23:59 Intake Total 36.63 / 36.63 42.8 / 42.8 Balance 36.63 / 36.63 42.8 / 42.8 Lab / Micro Data 04/03/23 03:50 04/03/23 03:50 Labs: Laboratory Results - last 24 hr 04/02/23 15:37: WBC 12.0 H, RBC 4.53, Hgb 14.3, Hct 43.3, MCV 95.6, MCH 31.6, MCHC 33.0, RDW Std Deviation 46.4 H, RDW Coeff of Day 13.1, Plt Count 391, MPV 10.3, Immature Gran % (Auto) 0.200, Neut % (Auto) 74.2 H, Lymph % (Auto) 18.0 L, [place] % (Auto) 5.7, Eos % (Auto) 1.4, Baso % (Auto) 0.5, Absolute Neuts (auto) 8.9 H, Absolute Lymphs (auto) 2.17, Nucleated RBC % 0, PT 13.1, INR 1.0, Sodium 139, Potassium 3.7, Chloride 106, Carbon Dioxide 26.0, Anion Gap 7, BUN 14, Creatinine 0.80, Estim Creat Clear Calc 52.20, Est GFR (MDRD) Af Amer 92, Est GFR (MDRD) Non-Af 76, BUN/Creatinine Ratio 17.4, Glucose 108 H, Calcium 10.0, Troponin I High Sens 4921 H*, B-Natriuretic Peptide 354.3 H 04/02/23 17:50: Troponin I High Sens 6185 H* 04/02/23 21:15: APTT 72.2 H, Troponin I High Sens 7806 H* 04/03/23 03:50: WBC 10.2, RBC 4.13 L, Hgb 13.4, Hct 39.5, MCV 95.6, MCH 32.4 H, MCHC 33.9, RDW Std Deviation 46.1 H, RDW Coeff of Day 13.2, Plt Count 334, MPV 10.6, Immature Gran % (Auto) 0.200, Neut % (Auto) 63.0, Lymph % (Auto) 26.8, Latimer % (Auto) 7.2, Eos % (Auto) 2.4, Baso % (Auto) 0.4, Absolute Neuts (auto) 6.4, Absolute Lymphs (auto) 2.74, Nucleated RBC % 0, APTT 40.5 H, Sodium 140, Potassium 3.6, Chloride 106, Carbon Dioxide 26.0, Anion Gap 8, BUN 14, Creatinine 0.71, Estim Creat Clear Calc 41.76, Est GFR (MDRD) Af Amer 106, Est GFR (MDRD) Non-Af 88, BUN/Creatinine Ratio 19.7, Glucose 110 H, Calcium 9.0, Troponin I High Sens 7434 H* Radiography Diagnostic Testing: Radiology Impression Chest X-Ray 04/02/23 15:40 IMPRESSION: No acute cardiopulmonary pathology Electronically Signed: Federico Guzmán MD at 16:26 EST Reading Location ID and State: [address] [place] [address] Tel , Service support , Rhythm Strip Rhythm Strip: Sinus Rhythm Rate: 80 Ectopy: None Physical Exam Narrative General: Alert, oriented, no apparent distress HEENT: Atraumatic, normocephalic Eyes: Anicteric, normal conjunctiva, extraocular movements grossly intact Neck: Supple Respiratory: Clear to auscultation bilaterally, normal respiratory effort Cardiovascular: Regular rate and rhythm GI: Soft, nontender, nondistended Extremities: No edema Musculoskeletal: Moving all extremities Neuro: No overt focal neurological deficits Skin: No rashes appreciated Psych: Cooperative Assessment & Plan Assessment/Plan (1) Non-ST elevation [place] (NSTEMI): PLAN: Plan 1. Non-STEMI/HTN/HLD ? Blood pressure stable, can resume her home blood pressure medications ? We will monitor and make adjustments as necessary ? Continue with the heparin drip ? We will consult cardiology ? We will obtain an echo ? She does have some calcium deposits in her coronary arteries per previous studies -04/03: Troponin initially roughly 4900, up trended to 7800 and then down trended again to 7400, remains on heparin drip, echo, cardiology consult 2. Asthma with a history of pulmonary nodules ? 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 Can continue with her inhalers 3. Anxiety/depression ? Stable ? Continue with her home medications 4. 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
[2023-04-03 10:54] LABS: Partial Thromboplast Time 60.1 Seconds (24.1-36.2)
--- NOTE | 2023-04-03 12:20 | CASEMGMT ---
RN?CM?STICKER OPERATOR?CM?to room to meet with patient for initial transition planning/care coordination?assessment.?RN?CM?introduced self and role at [facility].? Pt voices understanding and consents to?assessment?at this time.? Pt resting in bed in no distress at this time.? Pt is A/O at this time and answers all questions appropriately.?? Care providers, pharmacy, and demographics verified/updated at this time. PCP: Dr Rosy Lazo Specialists: Dr Cohen-Neuro/[facility] Ele, Dr Chappell-pulm, Dr Guerrero-cardiology [facility]erred [facility] [place] Insurance: [employer] Prescription Benefit:?Yes LW/HCPOA: Has both LW and HCPOA, who is her friend, Juliana. LNOK: Friend/POA, Juliana. son, Franck. dtr, Yue Living Arrangements: Lives alone in one-story home w/4 steps to go up to the sidewalk. Independent w/ADL's and IADL's and manages her own medications. Transportation:?Pt states drives self and states no transportation concerns at this time.? DME: States has the following DME:?shower chair, cane, nebulizer ?Pt states no need for further DME at this time.? HHC/SNF: No hx of either. No needs identified. Pt wishes to return home and states has no concerns with going home at time of discharge.? CM?to follow for any discharge planning/needs.? Pt voices no further concerns/needs at this time.? Advised pt to ask for?CM?if any further questions/concerns/needs arise.? Voices understanding. PLAN:??Home Sandra MANEN?RN?CM
--- NOTE | 2023-04-03 14:34 | PCM.CONS.C ---
Assessment & Plan Assessment/Plan (1) Non-ST elevation IN (NSTEMI): PLAN: Status post PELON to proximal circumflex. We will keep the patient on aspirin, Brilinta, statin, beta-carol. Staged PCI of RCA in about 4 weeks. HPI Consult Data Date of Consult: 04/03/23 HPI Narrative Reason for Consultation: Non-STEMI HPI Narrative: GRICELDA LYNCH, is a 67 F who presents with chest pain and was found to have non-STEMI. She underwent coronary angiography which revealed 95 to 99% stenosis in the proximal circumflex that was treated with drug-eluting stents. She does have residual 80% stenosis in the proximal RCA that will be treated in a staged manner. Review of systems: All systems reviewed. All system negative except that in HPI [facility] Medical History Asthma Crenshaw esophagus COPD (chronic obstructive pulmonary disease) Coronary artery calcification seen on CAT scan (07/2020) Emphysema of lung GERD (gastroesophageal reflux disease) Hiatal hernia History of Lindo's palsy History of bronchitis History of CVA (cerebrovascular accident) History of kidney stones History of Lyme disease History of pleural effusion History of pneumonia History of TIA (transient ischemic attack) (06/2018) Hyperlipidemia IBS (irritable bowel syndrome) Insomnia Osteoarthritis Panlobular emphysema Peptic ulcer disease Pericardial effusion PTSD (post-traumatic stress disorder) Pulmonary nodule Thyroid nodule Home Medications albuterol sulfate 90 mcg/actuation aerosol inhaler 2 puff inhalation Q6H PRN SHORTNESS OF BREATH 09/23/20 [History Last Taken Unknown] baclofen 10 mg tablet 10 mg PO QHS MUSCLE SPASMS 09/23/20 [History Last Taken 04/01/23] fluticasone 500 mcg-salmeterol 50 mcg/dose blistr powdr for inhalation (Advair Diskus) 1 inh inhalation BID SHORTNESS OF BREATH 09/23/20 [History Last Taken 04/02/23] magnesium oxide 500 mg capsule 500 mg PO QHS SUPPLEMENT 09/23/20 [History Last Taken 04/01/23] meloxicam 15 mg tablet (Mobic) 15 mg PO QHS PAIN/SWELLING 09/23/20 [History Last Taken 04/01/23] montelukast 10 mg tablet (Singulair) 10 mg PO DAILY ALLERGIES 09/23/20 [History Last Taken 04/02/23] vitamin B complex (B Complex-Vitamin B12 tablet) 1 tab PO DAILY SUPPLEMENT 09/23/20 [History Last Taken 04/02/23] vitamin E 200 unit capsule 200 unit PO DAILY SUPPLEMENT 10/05/20 [History Last Taken 04/02/23] aspirin 81 mg tablet,delayed release (Adult Aspirin Regimen) 81 mg PO QODA HEART HEALTH 02/16/21 [History Last Taken 03/31/23] calcium carbonate 600 mg-vitamin D3 25 mcg (1,000 unit) capsule 2 cap PO DAILY SUPPLEMENT 11/14/21 [History Last Taken 04/02/23] cholecalciferol (vitamin D3) 125 mcg (5,000 unit) capsule 125 mcg PO DAILY SUPPLEMENT 11/14/21 [History Last Taken 04/02/23] coenzyme Q10 75 mg capsule (Ultra CoQ10) 75 mg PO DAILY SUPPLEMENT 07/25/22 [History Last Taken 04/02/23] diphenhydramine HCl 25 mg capsule (Benadryl) 25 mg PO QHS SLEEP 07/25/22 [History Last Taken 04/01/23] garlic 1,000 mg capsule (garlic oil) 2,000 mg PO DAILY SUPPLEMENT 07/25/22 [History Last Taken 04/02/23] rosuvastatin 20 mg tablet (Crestor) 20 mg PO QHS CHOLESTEROL 07/25/22 [History Last Taken 04/01/23] albuterol sulfate 2.5 mg/3 mL (0.083 %) solution for nebulization 2.5 mg inhalation BID SHORTNESS OF BREATH 04/02/23 [History Last Taken 04/02/23] amlodipine 5 mg tablet 5 mg PO QHS BLOOD PRESSURE 04/02/23 [History Last Taken 04/01/23] carboxymethylcellulose 0.5 %-glycerin 0.9 % eye drops (Lubricant Eye (cmc-glycerin)) 1 drp EACH EYE QHS DRY EYE RELIEF 04/02/23 [History Last Taken 04/01/23] diazepam 2 mg tablet 1 mg PO DAILY PRN ANXIETY 04/02/23 [History Last Taken 04/01/23] ipratropium bromide 0.02 % solution for inhalation 0.5 mg inhalation BID SHORTNESS OF BREATH 04/02/23 [History Last Taken 04/02/23] omeprazole 20 mg capsule,delayed release 20 mg PO DAILY ACID REFLUX 04/02/23 [History Last Taken 04/02/23] Allergy/AdvReac Type Severity Reaction Status Date / Time epinephrine Allergy Severe Tachychardi Verified 04/02/23 15:38 a/Syncope pregabalin [From Lyrica] Allergy Severe Facial&Oral Verified 04/02/23 15:38 Swelling tizanidine [From Zanaflex] Allergy Severe Anaphylaxis Verified 04/02/23 15:38 atorvastatin [From Lipitor] AdvReac Severe Pain in BL Verified 04/02/23 15:38 arms hydroxyzine [From Vistaril] AdvReac Severe Inrease in Verified 04/02/23 15:38 BP Sulfa (Sulfonamide AdvReac Severe Anaphylaxis Verified 04/02/23 15:38 Antibiotics) temazepam [From Restoril] AdvReac Severe Facial & Verified 04/02/23 15:38 Oral Swelling zafirlukast [From Accolate] AdvReac Severe Abdominal Verified 04/02/23 15:38 pain & SOB furosemide [From Lasix] AdvReac Unknown Muscle Verified 04/02/23 15:38 Cramps misoprostol [From Arthrotec] AdvReac Unknown Liver Verified 04/02/23 15:38 Damage morphine AdvReac Unknown 'Insane' Verified 04/02/23 15:38 oseltamivir [From Tamiflu] AdvReac Unknown strips Verified 04/02/23 15:38 skin off throat' diclofenac AdvReac unkown Verified 04/02/23 15:38 [From Inflatherm (diclofenac-trolam)] trolamine salicylate AdvReac unkown Verified 04/02/23 15:38 [From Inflatherm (diclofenac-trolam)] Family History (Reviewed 07/25/22 @ 15:41 by Elly Post [employer]URITY, MA[employer]URITY-C) Mother COPD (chronic obstructive pulmonary disease) Lupus Father Glioblastoma Grandmother Pancreatic cancer Grandmother Breast cancer Grandfather Heart disease Aunt Cancer Aunt Cancer Surgical History History of breast surgery History of section History of cholecystectomy History of colonoscopy History of esophagogastroduodenoscopy History of eye surgery History of facial surgery History of herniorrhaphy History of repair of rectocele History of tonsillectomy History of vaginal surgery Social History Smoking Status: Former smoker pack-years: 31 Tobacco: How many years used: 21 Electronic Cigarette Use: not used how long ago did patient quit smoking: Quit in 1989 second hand exposure: Yes alcohol intake: current alcohol intake frequency: a few times a month Alcohol type: wine substance use type: does not use Physical Exam Const alert HEENT normocephalic Eyes no scleral icterus Resp normal respiratory effort Cardio regular rate Extremity no pedal edema Psych mental status grossly normal Risk Stratification Risk Stratification Applicable: No Objective Data Vital Signs: Vital Signs Temp Pulse Resp BP Pulse Ox O2 Del Method 97.2 F L 94 16 131/96 H 99 Room Air 04/03/23 08:12 04/03/23 08:12 04/03/23 08:12 04/03/23 08:12 04/03/23 08:12 04/03/23 08:53 Oxygen Delivery Method Room Air Weight: 125 lb 14.143 oz Body Mass Index (BMI) 23.8 Intake & Output: Intake and Output for Last 24 Hours 04/01/23 04/02/23 04/03/23 23:59 23:59 23:59 Intake Total 36.63 / 36.63 42.8 / 42.8 Balance 36.63 / 36.63 42.8 / 42.8 Lab / Micro Data 04/03/23 03:50 04/03/23 03:50 Labs: Laboratory Results - last 24 hr 04/02/23 15:37: WBC 12.0 H, RBC 4.53, Hgb 14.3, Hct 43.3, MCV 95.6, MCH 31.6, MCHC 33.0, RDW Std Deviation 46.4 H, RDW Coeff of Day 13.1, Plt Count 391, MPV 10.3, Immature Gran % (Auto) 0.200, Neut % (Auto) 74.2 H, Lymph % (Auto) 18.0 L, [place] % (Auto) 5.7, Eos % (Auto) 1.4, Baso % (Auto) 0.5, Absolute Neuts (auto) 8.9 H, Absolute Lymphs (auto) 2.17, Nucleated RBC % 0, PT 13.1, INR 1.0, Sodium 139, Potassium 3.7, Chloride 106, Carbon Dioxide 26.0, Anion Gap 7, BUN 14, Creatinine 0.80, Estim Creat Clear Calc 52.20, Est GFR (MDRD) Af Amer 92, Est GFR (MDRD) Non-Af 76, BUN/Creatinine Ratio 17.4, Glucose 108 H, Calcium 10.0, Troponin I High Sens 4921 H*, B-Natriuretic Peptide 354.3 H 04/02/23 17:50: Troponin I High Sens 6185 H* 04/02/23 21:15: APTT 72.2 H, Troponin I High Sens 7806 H* 04/03/23 03:50: WBC 10.2, RBC 4.13 L, Hgb 13.4, Hct 39.5, MCV 95.6, MCH 32.4 H, MCHC 33.9, RDW Std Deviation 46.1 H, RDW Coeff of Day 13.2, Plt Count 334, MPV 10.6, Immature Gran % (Auto) 0.200, Neut % (Auto) 63.0, Lymph % (Auto) 26.8, [place] % (Auto) 7.2, Eos % (Auto) 2.4, Baso % (Auto) 0.4, Absolute Neuts (auto) 6.4, Absolute Lymphs (auto) 2.74, Nucleated RBC % 0, APTT 40.5 H, Sodium 140, Potassium 3.6, Chloride 106, Carbon Dioxide 26.0, Anion Gap 8, BUN 14, Creatinine 0.71, Estim Creat Clear Calc 41.76, Est GFR (MDRD) Af Amer 106, Est GFR (MDRD) Non-Af 88, BUN/Creatinine Ratio 19.7, Glucose 110 H, Calcium 9.0, Troponin I High Sens 7434 H* 04/03/23 10:35: APTT 60.1 H Rhythm Strip Rhythm Strip: Sinus Rhythm Rate: 80 Ectopy: None Cardiology Labs/Tests 04/02/23 15:37: WBC 12.0 H, RBC 4.53, Hgb 14.3, Hct 43.3, MCV 95.6, MCH 31.6, MCHC 33.0, Plt Count 391, MPV 10.3, Immature Gran % (Auto) 0.200, Neut % (Auto) 74.2 H, Lymph % (Auto) 18.0 L, [place] % (Auto) 5.7, Eos % (Auto) 1.4, Baso % (Auto) 0.5, Absolute Neuts (auto) 8.9 H, Nucleated RBC % 0, PT 13.1, INR 1.0, Sodium 139, Potassium 3.7, Chloride 106, Carbon Dioxide 26.0, Anion Gap 7, BUN 14, Creatinine 0.80, Est GFR (MDRD) Af Amer 92, Est GFR (MDRD) Non-Af 76, BUN/Creatinine Ratio 17.4, Glucose 108 H, Calcium 10.0, B-Natriuretic Peptide 354.3 H 04/02/23 21:15: APTT 72.2 H 04/03/23 03:50: WBC 10.2, RBC 4.13 L, Hgb 13.4, Hct 39.5, MCV 95.6, MCH 32.4 H, MCHC 33.9, Plt Count 334, MPV 10.6, Immature Gran % (Auto) 0.200, Neut % (Auto) 63.0, Lymph % (Auto) 26.8, [place] % (Auto) 7.2, Eos % (Auto) 2.4, Baso % (Auto) 0.4, Absolute Neuts (auto) 6.4, Nucleated RBC % 0, APTT 40.5 H, Sodium 140, Potassium 3.6, Chloride 106, Carbon Dioxide 26.0, Anion Gap 8, BUN 14, Creatinine 0.71, Est GFR (MDRD) Af Amer 106, Est GFR (MDRD) Non-Af 88, BUN/Creatinine Ratio 19.7, Glucose 110 H, Calcium 9.0 04/03/23 10:35: APTT 60.1 H Rhythm: EKG: ECHO: Stress Test: Cardiac Cath: PCI: CT Surgery: Holter monitor: EPS: PPM: CXR: Chest CT Scan: Radiography Diagnostic Testing: Radiology Impression Chest X-Ray 04/02/23 15:40 IMPRESSION: No acute cardiopulmonary pathology Electronically Signed: Federico Guzmán MD at 16:26 EST Reading Location ID and State: [facility] / [place] Tel , Service support , Echocardiogram 04/02/23 19:18 Interpretation Summary There is a moderate sized posterior and lateral wall motion abnormality with hypokinesis of the segments. No evidence for diastolic dysfunction. The estimated ejection fraction is 45-50 %. Ordering Physician: Vladimir Bean Referring Physician: Rosy Lazo Performed By: Marley Oliveros, PERFECTO, RVT
--- NOTE | 2023-04-03 14:39 | CRPHASE1 ---
Patient Communication Patient Information PHII Cardiac Rehab Discussed with Patient:: Yes Guide to Cardiac Rehab Given to Patient:: Yes Cardiac Rehab Facility Choice List Given to Patient:: Yes Communication to Cardiac Rehab Choice Program [facility] CR PHII:: Communication Given to CR Diagnostic Cardiac Sonographer:: Cooper Goodrich Phase II Cardiac Rehab:: Yes Sessions:: 36 sessions - 3 days/wk, 12 weeks Cardiac Rehabilitation Info Program Information Cardiac Rehabilitation Program Information: Cardiac Rehab The cardiac rehab team at [facility] consists of highly skilled exercise physiologists, nurses, respiratory therapists and physicians working together with you. Our purpose is to help you have a full recovery and achieve the goals you set for yourself. Over the years many of our patients have returned to activities they assumed they would never do again! We can help restore your confidence and motivation to make lifestyle changes that can have a significant impact on your health and quality of life! We can help answer questions and concerns you may have about exercise, lifestyle, medications, diet, stress and anxiety which are common following a hospitalization. WE monitor ECG and vital signs during exercise and discuss your progress with you and report to your physician(s). Cardiac Rehab is proven to help reduce readmissions, improve functional capacity and lower recurrence of problems with your heart. Our Cardiac Rehab program is Certified by the [place] [employer] Pulmonary [employer] (AACVPR) and Accredited by the [place] [employer] through our [facility]. You can contact us at . We invite you to call us with your questions or to get started in our program. If you have other questions or concerns be sure to ask your physician/provider during your follow-up visit. WE look forward to seeing you!
--- NOTE | 2023-04-03 14:40 | CRPH1.INSTRU ---
General Education Discussed with Patient CAD and cardiac anatomy and function:: Patient communicates acknowledgment Explanation of diagnoses and procedures:: Patient communicates acknowledgment Sign/Symptoms of DC:: Patient communicates acknowledgment Antiplatelet therapy: Patient communicates acknowledgment Proper use of NTG-SL: Patient communicates acknowledgment Emergency procedures and activation of EMS: Patient communicates acknowledgment Compliance of all prescribed medications: Patient communicates acknowledgment Dyslipidemia Risk Factors Patient Dyslipidemia Risk Factors Are:: Total Cholesterol, Triglycerides, HDL and LDL Recommendations Recommendations Include:: Lipid profile not available Response Code Dyslipidemia Response Code:: Patient communicates acknowledgment Hypertension Response Code Hypertension:: Patient communicates acknowledgment Heart Disease Risk Factors Patient Heart Disease Risk Factors Are:: Family history of heart disease < 65 years old Recommendations Recommendations Include:: Educated family members of their risk and Educated family members of importance of prevention of heart disease Response Code Heart Disease Response Code:: Patient communicates acknowledgment
--- NOTE | 2023-04-03 14:45 | EKG12_ITS ---
Test Reason : POST CATH Blood Pressure : / mmHG Vent. Rate : 095 BPM Atrial Rate : 095 BPM P-R Int : 126 ms QRS Dur : 080 ms QT Int : 360 ms P-R-T Axes : 038 207 042 degrees QTc Int : 452 ms Normal sinus rhythm Right superior axis deviation Low voltage QRS ST & T wave abnormality, consider lateral ischemia Abnormal ECG When compared with ECG of 02-APR-2023 20:30, MANUAL COMPARISON REQUIRED, DATA IS UNCONFIRMED Confirmed by KEYLA BARBOSA, BRIDGETTE ([id number]), continuity editor FARA BELLAMY ([id number]) on 04/08/2023 10:59:18 AM Referred By: PAULETTE Confirmed By:REGINO RAMIRES MD
[2023-04-03] MEDS: Metoprolol(XL)Succ 25 MG Tablet PO (14:56)
[2023-04-03] MEDS: Montelukast 10 MG Tablet PO (14:57)
[2023-04-03] MEDS: Pantoprazole Sodium 20 MG Tablet PO (14:57)
[2023-04-03] MEDS: Meloxicam 15 MG Tablet PO (20:58)
[2023-04-03] MEDS: DiphenhydrAMINE 25 MG Capsule PO (20:58)
[2023-04-03] MEDS: Rosuvastatin 20 MG Tablet PO (20:59)
[2023-04-03] MEDS: amLODIPine 5 MG Tablet PO (20:59)
[2023-04-03] MEDS: Baclofen 10 MG Tablet PO (20:59)
[2023-04-03] MEDS: TICAGRELOR 90 MG TABLET PO (21:02)
[2023-04-04 02:50] VITALS: BP 105/69; PULSE 82; RESP 14; TEMP 36.9; O2SAT 98
[2023-04-04 06:52] LABS: Basophil# 0.04 X10^3/uL; Basophil% 0.4 % (0-1); Eosinophil# 0.11 X10^3/uL; Eosinophils% 1.1 % (0-5); Hematocrit 40.7 % (37-47); Hemoglobin 13.2 g/dL (12.0-15.0); Lymphocyte % 13.6 % (19-41); Mean Corp Hgb Conc 32.4 g/dL (32-36); Mean Corpuscular Hgb 31.5 pg (27.0-32.0); Mean Corpuscular Volume 97.1 fL (81-99); Mean Platelet Vol. 10.7 fl (6.2-12.0); Monocyte# 0.73 X10^3/uL; Monocyte% 7.1 % (0-10); NRBC Flagged by Analyzer 0 % (0-5); Neutrophil # 7.99 X10^3/uL (2.7-7.7); Neutrophil % 77.3 % (47-70); Platelet Count 350 K/mm3 (150-450); RBC Distribution Width CV 13.4 % (11.6-14.6); RBC Distribution Width SD 47.8 fl (35.1-43.9); Red Blood Count 4.19 M/mm3 (4.2-5.4); White Blood Count 10.3 K/mm3 (4.4-11.0)
[2023-04-04 07:28] LABS: AST(SGOT) 45 U/L (15-37); Alanine Aminotransfer ALT/SGPT 23 U/L (13-56); Albumin, Serum 3.4 g/dL (3.2-5.0); Alkaline Phosphatase 63 U/L (45-117); Anion Gap 4 (5-15); BUN 19 mg/dL (7-18); BUN/Creat Ratio 22.2 RATIO (10-20); Calcium,Total 8.9 mg/dL (8.5-10.1); Chloride 108 mmol/L (98-107); Creatinine, Serum 0.86 mg/dL (0.55-1.02); EST Glomerular Filtration Rate 70 mL/min (>60); Est Glom Filt Rate - Afr Amer 85 mL/min (>60); Estimated Creatinine Clearance 48.56 ml/min; Globulin 3.4 g/dL (2.2-4.2); Glucose 109 mg/dL (74-106); Protein, Total 6.8 g/dL (6.4-8.2); Sodium Level 136 mmol/L (136-145)
[2023-04-04 08:04] VITALS: O2SAT 97
[2023-04-04 08:20] VITALS: BP 133/118; PULSE 91; RESP 18; TEMP 36.6; O2SAT 99
[2023-04-04 08:29] VITALS: PULSE 91
[2023-04-04] MEDS: Pantoprazole Sodium 20 MG Tablet PO ×2 (08:29)
[2023-04-04] MEDS: Aspirin E.C. 81 MG Tablet PO (08:29)
[2023-04-04] MEDS: Metoprolol(XL)Succ 25 MG Tablet PO (08:29)
[2023-04-04] MEDS: TICAGRELOR 90 MG TABLET PO (08:29)
[2023-04-04] MEDS: Montelukast 10 MG Tablet PO (08:30)
--- NOTE | 2023-04-04 10:00 | EKG12_ITS ---
Test Reason : CHEST PAIN Blood Pressure : / mmHG Vent. Rate : 087 BPM Atrial Rate : 087 BPM P-R Int : 140 ms QRS Dur : 084 ms QT Int : 364 ms P-R-T Axes : 049 -01 069 degrees QTc Int : 438 ms Normal sinus rhythm Nonspecific ST and T wave abnormality Abnormal ECG When compared with ECG of 02-APR-2023 15:26, MANUAL COMPARISON REQUIRED, DATA IS UNCONFIRMED Confirmed by KEYLA BARBOSA, BRIDGETTE ([id number]), purchase request editor FARA BELLAMY ([id number]) on 04/08/2023 11:03:29 AM Referred By: PAULETTE Confirmed By:REGINO RAMIRES MD
--- NOTE | 2023-04-04 14:17 | DCINST_ITS ---
Discharge Instructions Diet Discharge Diet: - (DASH diet) Activity Discharge Activity: - (See post-cath discharge instructions) Follow Up Care Test Results: Test results from this visit will be discussed in further detail at your follow- up appointment, if applicable. Discharge Plan Admission Admit Date/Time: 04/02/23 16:36 Primary Reason for Your Visit: Chest pain Attending Provider: Pippa Carmen Primary Care Provider: Rosy Lazo Consulting Providers: Cooper Goodrich; Vladimir Bean Instructions Patient Instructions: Coronary Angioplasty Stenting Dc Additional Instructions / Restrictions: DISCHARGE INSTRUCTIONS PLEASE READ *Please take this with you to your next doctors appointment* -You will be discharged on metoprolol and Brilinta in addition to your other home medications -You will need to follow-up with cardiology upon discharge, please call the office of Dr. Goodrich upon discharge to schedule your hospital follow-up appointment ). This is especially important as you will likely need another stent placed in about 4 weeks -Do only light and easy activities for 2 to 3 days after your stent placement, ask for help with chores and errands while you recover and have someone drive you to your appointments. -Unless your job involves lifting you may return to normal activities within 2 days -Please take your medications as prescribed, do not skip doses -Check your incisions every day for signs of infection which would include redness, swelling, leaking. It is normal to have a small bruise or bump where the catheter was placed but a bruise that is getting larger is not normal. Please tell your healthcare team about this. Please proceed to the emergency department if you have uncontrollable bleeding from the site. -It is important to eat a diet that is low in fat, salt, and cholesterol -You will be set up with cardiac rehab upon discharge, it is important that you follow-up -Okay to shower from the day after your heart catheterization but keep your incision site clean and dry. -Please call your primary care provider's office upon discharge to schedule a hospital follow up within 1 week. -For any concerning signs or symptoms please call 911 or proceed to the nearest emergency department Discharge Orders/Prescriptions Prescriptions: New metoprolol succinate 25 mg Tablet Extended Release 24 Hr 25 mg PO DAILY 30 Days Qty: 30 0RF Brilinta 90 mg Tablet 90 mg PO BID 30 Days Qty: 60 0RF Continued montelukast [Singulair] 10 mg tablet 10 mg PO DAILY albuterol sulfate 90 mcg/actuation HFA aerosol inhaler 2 puff inhalation Q6H PRN (Reason: SHORTNESS OF BREATH ) baclofen 10 mg tablet 10 mg PO QHS vitamin B complex [B Complex-Vitamin B12] Tablet 1 tab PO DAILY magnesium oxide 500 mg capsule 500 mg PO QHS fluticasone propion-salmeterol [Advair Diskus] 500-50 mcg/dose blister with device 1 inh inhalation BID vitamin E 200 unit capsule 200 unit PO DAILY aspirin [Adult Aspirin Regimen] 81 mg tablet,delayed release (DR/EC) 81 mg PO QODAY calcium carbonate-vitamin D3 600 mg-25 mcg (1,000 unit) capsule 2 cap PO DAILY cholecalciferol (vitamin D3) 125 mcg (5,000 unit) capsule 125 mcg PO DAILY rosuvastatin [Crestor] 20 mg tablet 20 mg PO QHS Ultra CoQ10 75 mg capsule 75 mg PO DAILY garlic [garlic oil] 1,000 mg capsule 2,000 mg PO DAILY diphenhydramine HCl [Benadryl] 25 mg capsule 25 mg PO QHS albuterol sulfate 2.5 mg /3 mL (0.083 %) solution for nebulization 2.5 mg inhalation BID amlodipine 5 mg tablet 5 mg PO QHS omeprazole 20 mg capsule,delayed release(DR/EC) 20 mg PO DAILY ipratropium bromide 0.02 % solution 0.5 mg inhalation BID Patient Comments: USE 1 VIAL VIA NEBULIZER TWICE DAILY THREE TIMES DAILY NEEDED FOR WHEEZING or SHORTNESS OF BREATH over 5-15 MINUTES diazepam 2 mg tablet 1 mg PO DAILY PRN (Reason: ANXIETY ) Lubricant Eye (cmc-glycerin) 0.5-0.9 % drops 1 drp EACH EYE QHS Discontinued meloxicam [Mobic] 15 mg tablet 15 mg PO QHS Referrals / Follow Up: Rosy Lazo DO [Primary Care Provider] - Within 1 Week Cooper Goodrich MD [Med Staff - Active Staff] - 05/01/23 10:30 am (Appointment is with Elly Post N.P.) Disposition Disposition (needs filled in before D/C Order can be placed): Home, Self Care
[2023-04-04 14:20] VITALS: BP 107/61; PULSE 79; RESP 12; TEMP 36.4; O2SAT 100
--- NOTE | 2023-04-04 14:22 | PCM.DC.SUM ---
Providers Date of Admission: 04/02/23 Date of Discharge: 04/04/23 Primary Care Physician: Dr. Rosy Lazo, DO Consultations 04/02/23 19:18 Consult: Cardiology Routine Consulting Provider: Cooper Goodrich Reason for Consult: NSETMI EMERGENT Consult: No MD Notified: Yes Date Notified: 04/02/23 Time Notified: 16:39 Method of Notification: ED Physician Initiated Reason For Visit: NSTEMI Diagnosis Discharge Diagnosis (1) Non-ST elevation HI (NSTEMI): Status: Acute Code(s): I21.4 - Non-ST elevation (NSTEMI) myocardial infarction (2) CAD S/P percutaneous coronary angioplasty: Status: Acute Code(s): I25.10 - Atherosclerotic heart disease of [place] coronary artery without angina pectoris; Z98.61 - Coronary angioplasty status (3) Nicotine dependence, cigarettes, in remission: Status: Acute Code(s): F17.211 - Nicotine dependence, cigarettes, in remission (4) History of CVA (cerebrovascular accident): Status: Chronic Code(s): Z86.73 - Personal history of transient ischemic attack (TIA), and cerebral infarction without residual deficits Plan #Nstemi type I- CAD w/ PCI #Asthma with a history of pulmonary nodules #HTN #Anxiety/depression #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 Medications at Discharge Home Medications albuterol sulfate 90 mcg/actuation aerosol inhaler 2 puff inhalation Q6H PRN SHORTNESS OF BREATH 09/23/20 baclofen 10 mg tablet 10 mg PO QHS MUSCLE SPASMS 09/23/20 fluticasone 500 mcg-salmeterol 50 mcg/dose blistr powdr for inhalation (Advair Diskus) 1 inh inhalation BID SHORTNESS OF BREATH 09/23/20 magnesium oxide 500 mg capsule 500 mg PO QHS SUPPLEMENT 09/23/20 montelukast 10 mg tablet (Singulair) 10 mg PO DAILY ALLERGIES 09/23/20 vitamin B complex (B Complex-Vitamin B12 tablet) 1 tab PO DAILY SUPPLEMENT 09/23/20 vitamin E 200 unit capsule 200 unit PO DAILY SUPPLEMENT 10/05/20 aspirin 81 mg tablet,delayed release (Adult Aspirin Regimen) [facility] 02/[facility]21 calcium carbonate 600 mg-vitamin D3 25 mcg (1,000 unit) capsule 2 cap PO DAILY SUPPLEMENT 11/14/21 cholecalciferol (vitamin D3) 125 mcg (5,000 unit) capsule 125 mcg PO DAILY SUPPLEMENT 11/14/21 coenzyme Q10 75 mg capsule (Ultra CoQ10) 75 mg PO DAILY SUPPLEMENT 07/25/22 diphenhydramine HCl 25 mg capsule (Benadryl) 25 mg PO QHS SLEEP 07/25/22 garlic 1,000 mg capsule (garlic oil) 2,000 mg PO DAILY SUPPLEMENT 07/25/22 rosuvastatin 20 mg tablet (Crestor) 20 mg PO QHS CHOLESTEROL 07/25/22 albuterol sulfate 2.5 mg/3 mL (0.083 %) solution for nebulization 2.5 mg inhalation BID SHORTNESS OF BREATH 04/02/23 amlodipine 5 mg tablet 5 mg PO QHS BLOOD PRESSURE 04/02/23 carboxymethylcellulose 0.5 %-glycerin 0.9 % eye drops (Lubricant Eye (cmc-glycerin)) 1 drp EACH EYE QHS DRY EYE RELIEF 04/02/23 diazepam 2 mg tablet 1 mg PO DAILY PRN ANXIETY 04/02/23 ipratropium bromide 0.02 % solution for inhalation 0.5 mg inhalation BID SHORTNESS OF BREATH 04/02/23 omeprazole 20 mg capsule,delayed release 20 mg PO DAILY ACID REFLUX 04/02/23 metoprolol succinate 25 mg tablet,extended release 24 hr 25 mg PO DAILY 30 days #30 tabs 04/04/23 ticagrelor 90 mg tablet (Brilinta) 90 mg PO BID 30 days #60 tabs 04/04/23 Hospital Course Summary of Care Provided Minutes Spent on Discharge: 35 Hospital Course: 67-year-old female with history of TIA, IBS, GERD, COPD who presented to [facility] 04/02/2023 for progressive worsening of chest pain. Troponins were 4900 initially and up trended to 7800 before downtrending again and she was placed on a heparin drip and cardiology consulted. Echo had wall motion abnormalities and she was taken to the [facility]. She required PELON to proximal circumflex and beta-sera and Brilinta were added to her medications. She will need a staged PCI of the RCA in about 4 weeks. On day of discharge patient doing well, will discharge home with new medication instructions and instructions to follow-up with cardiology. Physical Exam Narrative General: Alert, oriented, no apparent distress HEENT: Atraumatic, normocephalic Eyes: Anicteric, normal conjunctiva, extraocular movements grossly intact Neck: Supple Respiratory: Clear to auscultation bilaterally, normal respiratory effort Cardiovascular: Regular rate and rhythm GI: Soft, nontender, nondistended Extremities: No edema Musculoskeletal: Moving all extremities Neuro: No overt focal neurological deficits Skin: No rashes appreciated Psych: Cooperative Weight / BMI Weight Weight: 57.1 kg Body Mass Index (BMI) 23.8 ABG / Lab / Microbiology Data 04/04/23 06:00 04/04/23 06:00 Laboratory: Laboratory Results - last 24 hr 04/04/23 06:00: WBC 10.3, RBC 4.19 L, Hgb 13.2, Hct 40.7, MCV 97.1, MCH 31.5, MCHC 32.4, RDW Std Deviation 47.8 H, RDW Coeff of Day 13.4, Plt Count 350, MPV 10.7, Immature Gran % (Auto) 0.500, Neut % (Auto) 77.3 H, Lymph % (Auto) 13.6 L, Gaines % (Auto) 7.1, Eos % (Auto) 1.1, Baso % (Auto) 0.4, Absolute Neuts (auto) 8.0 H, Absolute Lymphs (auto) 1.40, Nucleated RBC % 0, Sodium 136, Potassium 4.0, Chloride 108 H, Carbon Dioxide 24.0, Anion Gap 4 L, BUN 19 H, Creatinine 0.86, Estim Creat Clear Calc 48.56, Est GFR (MDRD) Af Amer 85, Est GFR (MDRD) Non-Af 70, BUN/Creatinine Ratio 22.2 H, Glucose 109 H, Calcium 8.9, Total Bilirubin 0.80, AST 45 H, ALT 23, Alkaline Phosphatase 63, Total Protein 6.8, Albumin 3.4, Globulin 3.4, Albumin/Globulin Ratio 1.0 D/C Instructions Discharge Diet: - (DASH diet) Meaningful Use Info Meaningful Use Diagnoses (Choose all that apply): AMI AMI/Post PCI/Angioplasty Aspirin given w/in 24hrs of arrival?: Yes ASA at discharge?: Yes Antiplatelet Therapy at Discharge:: Yes Statins at discharge?: Yes Дмитрий/ARB at discharge?: No Reason Дмитрий/ARB not ordered:: Hypotension (97/76 overnight) Beta Sera at discharge?: Yes Done w/ Acute HI measure.: Yes Documented LVEF (%): 50 Discharge Plan Admission Admit Date/Time: 04/02/23 16:36 Primary Reason for Your Visit: Chest pain Attending Provider: Pippa Carmen Primary Care Provider: Rosy Lazo Consulting Providers: Cooper Goodrich; Vladimir Bean Instructions Patient Instructions: Coronary Angioplasty Stenting Dc Additional Instructions / Restrictions: DISCHARGE INSTRUCTIONS PLEASE READ *Please take this with you to your next doctors appointment* -You will be discharged on metoprolol and Brilinta in addition to your other home medications -You will need to follow-up with cardiology upon discharge, please call the office of Dr. Goodrich upon discharge to schedule your hospital follow-up appointment ). This is especially important as you will likely need another stent placed in about 4 weeks -Do only light and easy activities for 2 to 3 days after your stent placement, ask for help with chores and errands while you recover and have someone drive you to your appointments. -Unless your job involves lifting you may return to normal activities within 2 days -Please take your medications as prescribed, do not skip doses -Check your incisions every day for signs of infection which would include redness, swelling, leaking. It is normal to have a small bruise or bump where the catheter was placed but a bruise that is getting larger is not normal. Please tell your healthcare team about this. Please proceed to the emergency department if you have uncontrollable bleeding from the site. -It is important to eat a diet that is low in fat, salt, and cholesterol -You will be set up with cardiac rehab upon discharge, it is important that you follow-up -Okay to shower from the day after your heart catheterization but keep your incision site clean and dry. -Please call your primary care provider's office upon discharge to schedule a hospital follow up within 1 week. -For any concerning signs or symptoms please call 911 or proceed to the nearest emergency department Discharge Orders/Prescriptions Prescriptions: New metoprolol succinate 25 mg Tablet Extended Release 24 Hr 25 mg PO DAILY 30 Days Qty: 30 0RF Brilinta 90 mg Tablet 90 mg PO BID 30 Days Qty: 60 0RF Continued montelukast [Singulair] 10 mg tablet 10 mg PO DAILY albuterol sulfate 90 mcg/actuation HFA aerosol inhaler 2 puff inhalation Q6H PRN (Reason: SHORTNESS OF BREATH ) baclofen 10 mg tablet 10 mg PO QHS vitamin B complex [B Complex-Vitamin B12] Tablet 1 tab PO DAILY magnesium oxide 500 mg capsule 500 mg PO QHS fluticasone propion-salmeterol [Advair Diskus] 500-50 mcg/dose blister with device 1 inh inhalation BID vitamin E 200 unit capsule 200 unit PO DAILY aspirin [Adult Aspirin Regimen] 81 mg tablet,delayed release (DR/EC) 81 mg PO QODAY calcium carbonate-vitamin D3 600 mg-25 mcg (1,000 unit) capsule 2 cap PO DAILY cholecalciferol (vitamin D3) 125 mcg (5,000 unit) capsule 125 mcg PO DAILY rosuvastatin [Crestor] 20 mg tablet 20 mg PO QHS Ultra CoQ10 75 mg capsule 75 mg PO DAILY garlic [garlic oil] 1,000 mg capsule 2,000 mg PO DAILY diphenhydramine HCl [Benadryl] 25 mg capsule 25 mg PO QHS albuterol sulfate 2.5 mg /3 mL (0.083 %) solution for nebulization 2.5 mg inhalation BID amlodipine 5 mg tablet 5 mg PO QHS omeprazole 20 mg capsule,delayed release(DR/EC) 20 mg PO DAILY ipratropium bromide 0.02 % solution 0.5 mg inhalation BID Patient Comments: USE 1 VIAL VIA NEBULIZER TWICE DAILY THREE TIMES DAILY NEEDED FOR WHEEZING or SHORTNESS OF BREATH over 5-15 MINUTES diazepam 2 mg tablet 1 mg PO DAILY PRN (Reason: ANXIETY ) Lubricant Eye (cmc-glycerin) 0.5-0.9 % drops 1 drp EACH EYE QHS Discontinued meloxicam [Mobic] 15 mg tablet 15 mg PO QHS Referrals / Follow Up: Rosy Lazo DO [Primary Care Provider] - Within 1 Week Cooper Goodrich MD [Med Staff - Active Staff] - 05/01/23 10:30 am (Appointment is with Elly Post N.P[facility] Disposition Disposition (needs filled in before D/C Order can be placed): Home, Self Care Charges/Coding Visit Charges Inpatient E&M: 40319 Disch Hosp >30min
--- NOTE | 2023-04-04 14:54 | CASEMGMT ---
Patient discharging on Brilinta. RN CM called [facility] and verified no copay for medication. RN CM in to discuss needs at discharge. Patient denies needs at discharge. Patient had no further questions or concerns.
[2023-04-04 15:00] VITALS: BP 107/61; PULSE 79; RESP 12; TEMP 36.4; O2SAT 100
--- NOTE | 2023-04-04 15:26 | PHA.DC.MC.R ---
Pharmacy [facility] has performed discharge medication reconciliation and counseling for this patient. The patient was counseled on the following discharge medications and changes in medications for homegoing were reviewed. 1. BRILINTA 2. TOPROL XL The Reason for Use, instructions for use, and potential side effects were reviewed for all new medications. The patient's questions regarding all of their medications were answered. The patient was able to verbally demonstrate an understanding of their discharge medications. The patient demonstrated some understanding but would benefit from further education and reinforcement. The patient was not able to adequately demonstrate understanding. The patient's discharge medication list was reviewed for discrepancies and discrepancies were resolved. Patient was counselled by Newton Valadez PharmD Candidate Medications at Discharge Home Medications albuterol sulfate 90 mcg/actuation aerosol inhaler 2 puff inhalation Q6H PRN SHORTNESS OF BREATH 09/23/20 baclofen 10 mg tablet 10 mg PO QHS MUSCLE SPASMS 09/23/20 fluticasone 500 mcg-salmeterol 50 mcg/dose blistr powdr for inhalation (Advair Diskus) 1 inh inhalation BID SHORTNESS OF BREATH 09/23/20 magnesium oxide 500 mg capsule 500 mg PO QHS SUPPLEMENT 09/23/20 montelukast 10 mg tablet (Singulair) 10 mg PO DAILY ALLERGIES 09/23/20 vitamin B complex (B Complex-Vitamin B12 tablet) 1 tab PO DAILY SUPPLEMENT 09/23/20 vitamin E 200 unit capsule 200 unit PO DAILY SUPPLEMENT 10/05/20 aspirin 81 mg tablet,delayed release (Adult Aspirin Regimen) [facility] 02/16/21 calcium carbonate 600 mg-vitamin D3 25 mcg (1,000 unit) capsule 2 cap PO DAILY SUPPLEMENT 11/14/21 cholecalciferol (vitamin D3) 125 mcg (5,000 unit) capsule 125 mcg PO DAILY SUPPLEMENT 11/14/21 coenzyme Q10 75 mg capsule (Ultra CoQ10) 75 mg PO DAILY SUPPLEMENT 07/25/22 diphenhydramine HCl 25 mg capsule (Benadryl) 25 mg PO QHS SLEEP 07/25/22 garlic 1,000 mg capsule (garlic oil) 2,000 mg PO DAILY SUPPLEMENT 07/25/22 rosuvastatin 20 mg tablet (Crestor) 20 mg PO QHS CHOLESTEROL 07/25/22 albuterol sulfate 2.5 mg/3 mL (0.083 %) solution for nebulization 2.5 mg inhalation BID SHORTNESS OF BREATH 04/02/23 amlodipine 5 mg tablet 5 mg PO QHS BLOOD PRESSURE 04/02/23 carboxymethylcellulose 0.5 %-glycerin 0.9 % eye drops (Lubricant Eye (cmc-glycerin)) 1 drp EACH EYE QHS DRY EYE RELIEF 04/02/23 diazepam 2 mg tablet 1 mg PO DAILY PRN ANXIETY 04/02/23 ipratropium bromide 0.02 % solution for inhalation 0.5 mg inhalation BID SHORTNESS OF BREATH 04/02/23 omeprazole 20 mg capsule,delayed release 20 mg PO DAILY ACID REFLUX 04/02/23 metoprolol succinate 25 mg tablet,extended release 24 hr 25 mg PO DAILY 30 days #30 tabs 04/04/23 ticagrelor 90 mg tablet (Brilinta) 90 mg PO BID 30 days #60 tabs 04/04/23
--- NOTE | 2023-04-24 11:51 | CL.I_ITS ---
Patient Name: GRICELDA LYNCH Study Date: 04/03/2023 Performing: Iesha Goodrich MD Ht: 61 inches 155 cm : 1955 Wt: 126 lbs 57.1 kg Age: 67 Gender: female BSA: 1.55 PROCEDURE(S) PERFORMED DC02-(59851)LHC/COR IC12-(45407/C9600)PELON W/WO PTCA, SINGLE CORONARY ARTERY CLINICAL PROFILE AND CO-MORBIDITIES Heart Failure: None CAD Presentations: Non-STEMI. Symptom onset Date/Time: Time Not Available CONCLUSIONS CAD as described. Successful PELON to pLCx RECOMMENDATIONS DAPT for 1 year. Pt. should return for PCI of RCA in about 4 weeks DESCRIPTION OF PROCEDURE The patient arrived to the procedure lab. The risks and benefits of the procedure as well as a full description of our services here and lack of surgical backup were fully explained to the patient and/or their significant other prior to the catheterization. The Timeout was completed, verifying the correct patient and procedure. The patient's procedural site was prepped and draped in the usual fashion. Local anesthetic was given subcutaneously to right radial region with Lidocaine 2%. Using a modified Seldinger technique, arterial access was obtained via the right radial artery, a 6Fr sheath was inserted.. Left Coronary Artery selective angiography was performed in multiple views using a 5 Fr. JL3.5 catheter. Right Coronary Artery selective angiography was then performed in multiple views using a 5 Fr. JR 4 catheterThe images were reviewed and options discussed. A decision was then made to proceed with an Intervention, IVUS or other adjunct procedure. XB 3.0 Guide catheter was inserted and engaged into the LCA. BMW Guide wire was advanced to the Circumflex. 3.5X12 EUPHORA Balloon catheter was inserted. Balloon catheter was advanced across lesion in the circumflex, proximal. PTCA balloon inflated at 8 atms for 8 secs. PTCA balloon inflated at 10 atms for 15 secs. 3.5X12 KITA Drug Eluting stent was inserted. Drug Eluting stent was advanced across the lesion in the circumflex, proximal. Angiogram performed post stent deployment. 2.5X15 KITA Drug Eluting stent was inserted. Drug Eluting stent was advanced across the lesion in the circumflex, proximal. 3.0X12 NC EUPHORA Balloon catheter was inserted post stent. Angiogram performed post balloon dilatation. The arterial sheath was pulled and a TR Band was applied for hemostasis 14 cc air CORONARY ANGIOGRAPHY DOMINANCE: Right Dominant LEFT MAIN: Mild luminal irregularities LEFT ANTERIOR DESCENDING ARTERY: Mild luminal irregularities DIAGONAL 1: Proximal - 50 % Stenosis CIRCUMFLEX ARTERY: PROX CIRC: 99 % Stenosis RIGHT CORONARY ARTERY: PROX RCA: 80 % Stenosis INTERVENTION INFORMATION LESION SITE: Circumflex (Proximal) Lesion Complexity: High/C, chronic total occlusion: No, lesion at bifurcation: No, thrombus present: Yes, lesion length: 12 mm, culprit lesion: Yes, Previously treated lesion: No Pre Stenosis: 99 % Pre intervention GAEL flow: 3 PROCEDURE: Drug Eluting Stent with pre and post dilatation Post Stenosis: 0 % Post intervention GAEL flow: 3 Lesion Devices: Yo .014 190cm BMW [place] Straight Cordis 6 Fr XB3.0 100cm Guide Catheter Medtronic SC EUPHORA RX 3.5x12 BALLOON Medtronic 3.5 x 12 KITA FRONTIER PELON Medtronic 2.50 x 15 KITA FRONTIER PELON Medtronic NC EUPHORA RX 3.0x12 BALLOON COMPLICATIONS No Complications PROCEDURE MEDICATIONS Versed 1 mg IV Fentanyl 50 mcg IV Oxygen: 2 L/min via nasal cannula Baby Aspirin (81mg) 1 Tabs PO 04/03/2023 13:12:30 Brilinta 180 mg PO @ 04/03/2023 14:10:55 Heparin given IA 04/03/2023 13:27:48 Heparin 1000 unit(s) IV 04/03/2023 13:42:34 Verapamil 2.5mg, Ntg 100mcgs, 3000 units of Heparin given IA 04/03/2023 13:27:48 IV Bolus: .9 NaCl 500 ml total throughout procedure 04/03/2023 14:03:54 SUMMARY OF HEMODYNAMIC DATA Time AIR REST ECG 13:11:40 AO 118/52 (89) SA 13:29:52 AO 123/61 (86) 13:58:39 Signed By Iesha Goodrich MD On 04/24/2023 11:50:36 Iesha Goodrich MD
== END 2023-04-04 16:39 | disposition home or self-care (01) | DRG 322 ==
LOC: ED 16:46 → PCU 17:04
PROVIDERS: Internal Medicine; Admitting Provider Family Medicine; Emergency Provider Emergency Medicine; PCP Family Medicine; Visit Provider Internal Medicine
DX: I21.4 Non-ST elevation (NSTEMI) myocardial infarction (principal); A69.20 Lyme disease, unspecified; B39.9 Histoplasmosis, unspecified; J43.1 Panlobular emphysema; F02.80 Dementia in other diseases classified elsewhere, unspecified severity, without behavioral disturbance, psychotic disturbance, mood disturbance, and anxiety; I10 Essential (primary) hypertension; F32.A Depression, unspecified; K44.9 Diaphragmatic hernia without obstruction or gangrene; I25.10 Atherosclerotic heart disease of native coronary artery without angina pectoris; J45.909 Unspecified asthma, uncomplicated; E78.5 Hyperlipidemia, unspecified; K21.9 Gastro-esophageal reflux disease without esophagitis; F17.211 Nicotine dependence, cigarettes, in remission; Z79.82 Long term (current) use of aspirin; Z80.0 Family history of malignant neoplasm of digestive organs; Z79.51 Long term (current) use of inhaled steroids; Z98.61 Coronary angioplasty status; Z86.73 Personal history of transient ischemic attack (TIA), and cerebral infarction without residual deficits
CPT/HCPCS: 36415; 71045; 80048; 80053; 83880; 84484; 85025; 85610; 85730; 92928; 93005; 93306; 93454; 94640; 99152; 99153; 99285; J7040; Q9967; A4216; C1725; C1769; C1874; C1887; C1894; C9600; J1327

== ENCOUNTER → 2023-05-01 | Outpatient (CLI) | payer MEDICARE, MEDICAID, SELFPAY ==
[2023-05-01 12:36] LABS: Absolute Lymphocyte Count 1.59 X10^3/uL (0.83-4.51); Absolute Neutrophil Count 7.1 X10^3/uL (2.0-7.7); Basophil# 0.05 X10^3/uL; Basophil% 0.5 % (0-1); Eosinophil# 0.12 X10^3/uL; Eosinophils% 1.2 % (0-5); Hematocrit 41.7 % (37-47); Hemoglobin 13.5 g/dL (12.0-15.0); Lymphocyte # 1.59 X10^3/ul (0.83-4.51); Lymphocyte % 16.5 % (19-41); Mean Corp Hgb Conc 32.4 g/dL (32-36); Mean Corpuscular Hgb 31.9 pg (27.0-32.0); Mean Corpuscular Volume 98.6 fL (81-99); Mean Platelet Vol. 10.4 fl (6.2-12.0); Monocyte% 7.3 % (0-10); NRBC Flagged by Analyzer 0 % (0-5); Neutrophil # 7.13 X10^3/uL (2.7-7.7); Neutrophil % 74.3 % (47-70); Platelet Count 353 K/mm3 (150-450); RBC Distribution Width CV 13.2 % (11.6-14.6); RBC Distribution Width SD 47.8 fl (35.1-43.9); Red Blood Count 4.23 M/mm3 (4.2-5.4); White Blood Count 9.6 K/mm3 (4.4-11.0)
[2023-05-01 13:10] LABS: Anion Gap 7 (5-15); BUN 11 mg/dL (7-18); BUN/Creat Ratio 14.7 RATIO (10-20); Calcium,Total 9.1 mg/dL (8.5-10.1); Chloride 105 mmol/L (98-107); Creatinine, Serum 0.75 mg/dL (0.55-1.02); EST Glomerular Filtration Rate 82 mL/min (>60); Est Glom Filt Rate - Afr Amer 99 mL/min (>60); Glucose 91 mg/dL (74-106); Potassium 3.8 mmol/L (3.5-5.1); Sodium Level 139 mmol/L (136-145)
== END | disposition home or self-care (01) ==
PROVIDERS: PCP Family Medicine; Referring Provider Nurse Practitioner Gerontology; Visit Provider Nurse Practitioner Gerontology
DX: I25.10 Atherosclerotic heart disease of native coronary artery without angina pectoris (principal); Z98.61 Coronary angioplasty status
CPT/HCPCS: 36415; 80048; 85025

== ENCOUNTER 2023-05-10 07:49 | Day surgery (SDC) | payer MEDICARE, MEDICAID, SELFPAY ==
[2023-05-09 07:32] VITALS: BMI 23.6
--- NOTE | 2023-05-10 12:58 | CRPHASE1 ---
Patient Communication Patient Information PHII Cardiac Rehab Discussed with Patient:: Yes Guide to Cardiac Rehab Given to Patient:: Yes Cardiac Rehab Facility Choice List Given to Patient:: Yes Communication to Cardiac Rehab Choice Program [facility] CR PHII:: Communication Given to CR Remote Coders:: Cooper Goodrich Refer Phase II Cardiac Rehab:: Yes Orientation Date:: 05/10/23 Cardiac Rehabilitation Info Program Information Cardiac Rehabilitation Program Information: Cardiac Rehab The cardiac rehab team at [facility] consists of highly skilled exercise physiologists, nurses, respiratory therapists and physicians working together with you. Our purpose is to help you have a full recovery and achieve the goals you set for yourself. Over the years many of our patients have returned to activities they assumed they would never do again! We can help restore your confidence and motivation to make lifestyle changes that can have a significant impact on your health and quality of life! We can help answer questions and concerns you may have about exercise, lifestyle, medications, diet, stress and anxiety which are common following a hospitalization. WE monitor ECG and vital signs during exercise and discuss your progress with you and report to your physician(s). Cardiac Rehab is proven to help reduce readmissions, improve functional capacity and lower recurrence of problems with your heart. Our Cardiac Rehab program is Certified by the [place] [employer]-Vascular and Pulmonary [employer] (AACVPR) and Accredited by the [place] [employer] through our [facility]. You can contact us at . We invite you to call us with your questions or to get started in our program. If you have other questions or concerns be sure to ask your physician/provider during your follow-up visit. WE look forward to seeing you!
--- NOTE | 2023-05-10 12:59 | CRPH1.INSTRU ---
General Education Discussed with Patient CAD and cardiac anatomy and function:: Patient communicates acknowledgment Explanation of diagnoses and procedures:: Patient communicates acknowledgment Sign/Symptoms of NH:: Patient communicates acknowledgment Antiplatelet therapy: Patient communicates acknowledgment Proper use of NTG-SL: Patient communicates acknowledgment Emergency procedures and activation of EMS: Patient communicates acknowledgment Compliance of all prescribed medications: Patient communicates acknowledgment Smoking Risk Factors Patient Nicotine/Smoking Risk Factors Are:: Non-smoker Recommendations Recommendations Include:: Previous smoker; encourage continued cessation Dyslipidemia Risk Factors Patient Dyslipidemia Risk Factors Are:: Total Cholesterol, Triglycerides, HDL and LDL Recommendations Recommendations Include:: Lipid profile not available, Reviewed NCEP/ATP guidelines and Therapeutic Lifestyle Change dietary guidelines Response Code Dyslipidemia Response Code:: Patient communicates acknowledgment Overweight/Obesity Risk Factors Patient Overweight/Obesity Risk Factors Are:: BMI Normal [24-29 & > 65 years old] Response Code Overweight/Obesity:: Patient communicates acknowledgment Hypertension Recommendations Recommendations Include:: Maintain BP <130/85, DASH dietary guidelines, Decrease/maintain normal body weight and Moderation of ETOH Response Code Hypertension:: Patient communicates acknowledgment Heart Disease Risk Factors Patient Heart Disease Risk Factors Are:: Previous cardiac event Response Code Heart Disease Response Code:: Patient communicates acknowledgment Diabetes Risk Factors Patient Diabetes Risk Factors Are:: No documented hx of diabetes Sedentary Risk Factors Patient Sedentary Risk Factors Are:: Lack of regular exercise Recommendations Recommendations Include:: Aerobic exercise 5-7 times/week for 20-30 minutes continuously, Benefits of regular exercise, Discussed home walking program and Monitored Outpatient Cardiac Rehab Response Code Sedentary Response Code:: Patient communicates acknowledgment Stress Recommendations Recommendations Include:: Identification of stressors, and assessment of coping skills and Stress management techniques Response Code Stress Response Code:: Patient communicates acknowledgment
--- NOTE | 2023-05-12 17:10 | CL.I_ITS ---
Patient Name: GRICELDA LYNCH Study Date: 05/10/2023 Performing: Iesha Goodrich MD Ht: 61 inches 154.94 cm : 1955 Wt: 125.2 lbs 56.7 kg Age: 67 Gender: female BSA: 1.55 PROCEDURE(S) PERFORMED IC12-(41255/C9600)PELON W/WO PTCA, SINGLE CORONARY ARTERY CLINICAL PROFILE AND CO-MORBIDITIES Indications: Staged PCI of RCA disease Heart Failure: None CONCLUSIONS Successful PELON to proximal RCA as described RECOMMENDATIONS DESCRIPTION OF PROCEDURE The patient arrived to the procedure lab. The risks and benefits of the procedure as well as a full description of our services here and current unavailability of surgical backup were fully explained to the patient and/or their significant other prior to the catheterization. The Timeout was completed, verifying the correct patient and procedure. The patient's procedural site was prepped and draped in the usual fashion. Local anesthetic was given subcutaneously to right radial region with Lidocaine 2%. Using a modified Seldinger technique, arterial access was obtained via the right radial artery, a 6Fr sheath was inserted.. jr4 Guide catheter was inserted and engaged into the RCA. BMW Guide wire was advanced to the RCA. FRONTIER 2.25X8 Drug Eluting stent was inserted. Drug Eluting stent was advanced across the lesion in the right coronary, proximal. PTCA balloon inflated at 16 atms for 48 secs. Angiogram performed post stent deployment. The arterial sheath was pulled and a TR Band was applied for hemostasis 12 ml of air INTERVENTION INFORMATION LESION SITE: RCA (Proximal) Lesion Complexity: High/C, chronic total occlusion: No, lesion at bifurcation: No, thrombus present: No, lesion length: 7 mm, culprit lesion: Yes, Previously treated lesion: No Pre Stenosis: 90 % Pre intervention GAEL flow: 3 PROCEDURE: Drug Eluting Stent Post Stenosis: 0 % Post intervention GAEL flow: 3 Lesion Devices: Yo .014 190cm BMW [place] Straight Cordis 6 Fr JR4 100cm Guide Catheter Escom 2.25 x 08 KITA FRONTIER PELON COMPLICATIONS No Complications PROCEDURE MEDICATIONS Fentanyl 50 mcg IV Versed 1 mg IV Oxygen: 2 L/min via nasal cannula Heparin given IA 05/10/2023 11:13:39 Heparin 1500 unit(s) IV 05/10/2023 11:14:38 Nitro 100 mcg IC 05/10/2023 11:34:38 Verapamil 2.5mg, Ntg 100mcgs, 3000 units of Heparin given IA 05/10/2023 11:13:39 IV Bolus: .9 NaCl 300 ml total 05/10/2023 11:39:01 SUMMARY OF HEMODYNAMIC DATA Time AIR REST ECG 08:09:53 AO 127/68 (91) SA 11:15:49 Signed By Iesha Goodrich MD On 05/12/2023 17:09:41 Iesha Goodrich MD
== END 2023-05-10 14:37 | disposition home or self-care (01) ==
PROVIDERS: PCP Family Medicine; Referring Provider Specialist; Visit Provider Specialist
DX: I25.10 Atherosclerotic heart disease of native coronary artery without angina pectoris (principal); J43.1 Panlobular emphysema; I25.5 Ischemic cardiomyopathy; E78.5 Hyperlipidemia, unspecified; I67.1 Cerebral aneurysm, nonruptured; Z79.51 Long term (current) use of inhaled steroids; Z79.82 Long term (current) use of aspirin; Z79.899 Other long term (current) drug therapy; Z86.73 Personal history of transient ischemic attack (TIA), and cerebral infarction without residual deficits; Z87.891 Personal history of nicotine dependence
CPT/HCPCS: 92928; 93005; 99152; 99153; C1887; J7040; Q9967; C1769; C1874; C1894; C9600

== ENCOUNTER → 2023-06-19 | Outpatient (CLI) | payer MEDICARE, MEDICAID, SELFPAY ==
--- NOTE | 2023-06-19 13:03 | PCM.CR.HP2 ---
CR - History & Physical General Arrival date:: 06/19/23 Arrival time:: 13:03 Date of Referral:: 05/17/23 Date of CR Evaluation:: 06/19/23 Referring Physician: Dr. Guerrero Primary Diagnosis: PCI with stenting History of Present Cardiac Event Onset Date PTCA or coronary stenting:: Yes Vessel: prox circumflex and prox RCA onset 05/10/23 Medications Ambulatory Orders Medication Instructions Recorded albuterol sulfate 90 mcg/actuation 2 puff inhalation Q6H PRN 09/23/20 aerosol inhaler SHORTNESS OF BREATH baclofen 10 mg tablet 10 mg PO QHS MUSCLE SPASMS 09/23/20 fluticasone 500 mcg-salmeterol 50 1 inh inhalation BID SHORTNESS OF 09/23/20 mcg/dose blistr powdr for BREATH inhalation (Advair Diskus) montelukast 10 mg tablet 10 mg PO DAILY ALLERGIES 09/23/20 (Singulair) vitamin B complex (B 1 tab PO DAILY SUPPLEMENT 09/23/20 Complex-Vitamin B12 tablet) aspirin 81 mg tablet,delayed [facility] release (Adult Aspirin Regimen) calcium carbonate 600 mg-vitamin 2 cap PO DAILY SUPPLEMENT 11/14/21 D3 25 mcg (1,000 unit) capsule cholecalciferol (vitamin D3) 125 125 mcg PO DAILY SUPPLEMENT 11/14/21 mcg (5,000 unit) capsule coenzyme Q10 75 mg capsule (Ultra 75 mg PO DAILY SUPPLEMENT 07/25/22 CoQ10) diphenhydramine HCl 25 mg capsule 25 mg PO QHS SLEEP 07/25/22 (Benadryl) garlic 1,000 mg capsule (garlic 2,000 mg PO DAILY SUPPLEMENT 07/25/22 oil) albuterol sulfate 2.5 mg/3 mL 2.5 mg inhalation BID SHORTNESS OF 04/02/23 (0.083 %) solution for nebulization BREATH amlodipine 5 mg tablet 5 mg PO QHS BLOOD PRESSURE 04/02/23 carboxymethylcellulose 0.5 1 drp EACH EYE QHS DRY EYE RELIEF 04/02/23 %-glycerin 0.9 % eye drops (Lubricant Eye (cmc-glycerin)) diazepam 2 mg tablet 1 mg PO DAILY PRN ANXIETY 04/02/23 ipratropium bromide 0.02 % 0.5 mg inhalation BID SHORTNESS OF 04/02/23 solution for inhalation BREATH omeprazole 20 mg capsule,delayed 20 mg PO DAILY ACID REFLUX 04/02/23 release metoprolol succinate 25 mg 25 mg PO DAILY #90 tabs 05/01/23 tablet,extended release 24 hr ticagrelor 90 mg tablet (Brilinta) 90 mg PO BID #180 tabs 05/01/23 rosuvastatin 40 mg tablet 40 mg PO QHS CHOLESTEROL #90 tabs 05/23/23 Allergies Allergies epinephrine Allergy (Severe, Verified 05/23/23 11:07) Tachychardia/Syncope pregabalin [From Lyrica] Allergy (Severe, Verified 05/23/23 11:07) Facial&Oral Swelling tizanidine [From Zanaflex] Allergy (Severe, Verified 05/23/23 11:07) Anaphylaxis 'shuts down everything' atorvastatin [From Lipitor] Adverse Reaction (Severe, Verified 05/23/23 11:07) Pain in BL arms hydroxyzine [From Vistaril] Adverse Reaction (Severe, Verified 05/23/23 11:07) Inrease in BP Sulfa (Sulfonamide Antibiotics) Adverse Reaction (Severe, Verified 05/23/23 11:07) Anaphylaxis temazepam [From Restoril] Adverse Reaction (Severe, Verified 05/23/23 11:07) Facial & Oral Swelling zafirlukast [From Accolate] Adverse Reaction (Severe, Verified 05/23/23 11:07) Abdominal pain & SOB furosemide [From Lasix] Adverse Reaction (Unknown, Verified 05/23/23 11:07) Muscle Cramps misoprostol [From Arthrotec] Adverse Reaction (Unknown, Verified 05/23/23 11:07) Liver Damage morphine Adverse Reaction (Unknown, Verified 05/23/23 11:07) 'Insane' oseltamivir [From Tamiflu] Adverse Reaction (Unknown, Verified 05/23/23 11:07) strips skin off throat' diclofenac [From Inflatherm (diclofenac-trolam)] Adverse Reaction (Verified 05/23/23 11:07) unkown trolamine salicylate [From Inflatherm (diclofenac-trolam)] Adverse Reaction (Verified 05/23/23 11:07) unkown Sleep Disorder Evaluation Hx of Sleep Apnea: No Do you snore loudly (louder than talking or can be heard through closed doors)?: No Do you often feel tired/ fatigued/ sleepy during daytime?: No Has anyone observed you stop breathing during sleep?: No History of Hypertension (for STOP score): No STOP Results: Negative Advanced Directives Advanced Directives Power of Vp Packaging: Yes Living Will: Yes Advance Directives on File: Yes DNR Order?:: No Past Medical History Covid-19 Screening Physicial Symptoms Other Clinical Concerns Exposure Risk Pertinent Comorbidities 65 years or older:: Yes Has a chronic lung disease or moderate to severe asthma:: Yes Has a serious heart condition:: Yes Past Medical Illness Medical History (Reviewed 05/23/23 @ 11:47 by Selvin Borges [employer], [employer]) Asthma Crenshaw esophagus COPD (chronic obstructive pulmonary disease) Coronary artery calcification seen on CAT scan (07/2020) Emphysema of lung GERD (gastroesophageal reflux disease) Hiatal hernia History of Lindo's palsy History of bronchitis History of CVA (cerebrovascular accident) History of kidney stones History of Lyme disease History of pleural effusion History of pneumonia History of TIA (transient ischemic attack) (06/2018) Hyperlipidemia IBS (irritable bowel syndrome) Insomnia Osteoarthritis Panlobular emphysema Peptic ulcer disease Pericardial effusion PTSD (post-traumatic stress disorder) Pulmonary nodule Thyroid nodule Past Surgical History Surgical History (Reviewed 05/23/23 @ 11:47 by Selvin Borges [employer], [employer]) History of breast surgery History of section History of cholecystectomy History of colonoscopy History of esophagogastroduodenoscopy History of eye surgery History of facial surgery History of herniorrhaphy History of repair of rectocele History of tonsillectomy History of vaginal surgery Stented coronary artery (05/10/23) Family History Summary Family History (Reviewed 05/23/23 @ 11:47 by Selvin Borges [employer], [employer]) Mother COPD (chronic obstructive pulmonary disease) Lupus Father Glioblastoma Grandmother Pancreatic cancer Grandmother Breast cancer Grandfather Heart disease Aunt Cancer Aunt Cancer Social History Smoking History Smoking Status: Former smoker Years Smokin Packs Smoked per Day: 1.5 Hx Smoking Cessation Date: 09/02/89 Alcohol Use Alcohol Usage: Yes (occasionally) Occupation Occupation (List type of work in comments):: Retired Hobbies, Recreation, Social Activities Hobbies: Reading, Walking and Other (gardening, shell collecting) Recreational Activities: I am able to engage in all my recreational activities Social Environment Status Marital Status: Current Living Arrangements Living Environment:: Alone Children How many children do you have?: 2 Do any of your children live nearby?: Yes Safety Do you feel safe in your surroundings?: Yes Assistance Do you need any assistance at home?: no Review of Systems Review of Systems Hints Review of Present Symptoms: Reports Shortness of Breath with Exertion, Fatigue, Appetite - Normal, Appetite - Special Diet and Sleep - Normal; Denies Shortness of Breath at Rest, PVD, Operative Discomfort, Angina, Wound Healing, Dizziness/Lightheadedness, Heart Arrhythmia/Irregularities or Sexual Changes Pain Is Patient Pain Free?: No Pain Location: back Pain Level: 07/06 Risk Factor Assessment Chief Complaint Chief Complaint: PCI with stenting Vital Signs Pulse Ox: 98 Blood Pressure: 112/60 Pulse Pulse Rate: 71 Pulse Rhythm: Regular Hypertension How long have you been treated?: 2 years Blood Pressure Sitting - Left Arm: 112/60 Obesity Height: 5 ft 1 in Weight:: 126 lb Weight in Pounds: 126.0 lbs Body Mass Index (BMI): 23.8 Nutritional Referral for Obesity: No Physical Inactivity Physical Inactivity: Reg Exercise 30 min/day Risk Stratification Risk Guidelines: Moderate Risk: Risk Factor for Smoking, Risk Factor for Diabetes, Risk Factor for Obesity, Risk Factor for Hypertension and Risk Factor for Sedentary Lifestyle and Highest Risk: Risk Factor for Dyslipidemia and Risk Factor for Depression For Smoking Smoking Risk Guidelines For Dyslipidemia Dyslipidemia Risk Guidelines For Diabetes Mellitus Diabetes Risk Guidelines For Obesity/Overweight Obesity/Overweight Risk Guidelines For Hypertension Hypertension Risk Guidelines For Sedentary Lifestyle Sedentary Lifestyle Risk Guidelines For Depression Depression Risk Guidelines Family History Family History (Reviewed 05/23/23 @ 11:47 by Selvin Borges [employer], [employer]) Mother COPD (chronic obstructive pulmonary disease) Lupus Father Glioblastoma Grandmother Pancreatic cancer Grandmother Breast cancer Grandfather Heart disease Aunt Cancer Aunt Cancer Motivation Motivation to Participate On a scale of 1 to 10, how prepared are you to commit to attending program?: 10 What do you see as barriers to successfully being able to complete the program?: nothing What do you see as the benefits of succesfully completing the program? In other words, what do you hope to get out of participating in the program?: more energy Are there issues you are dealing with that will interfere with completing the program?: no Do you have a spouse or signficant other, family or friends who will help support you to complete the program?: yes
--- NOTE | 2023-06-19 13:13 | CR.ITP_ITS ---
Diagnosis General Information Admitting Diagnosis: PCi with stenting Personal Learning Style:: Audio/Visual Stage of change r/t lifestyle modifications:: Contemplation Gave educational material for:: Treating Heart Disease, How The Heart Works, What it means to have Heart Disease, How Coronary Artery Disease is Diagnosed, Heart Procedures, What Heart Medications Do, Risk Factors & Modifications, Living an Active Life, Nutrition, Emotions & Heart Disease, Stress Management & Relaxation and Sleep Disorders & Heart Disease Education/Goals Cardiac Rehabilitation Goals Personal Goals: Initial Assessment: Improve energy level, Improve muscle strength and endurance, Improve diet and eating habits (eat healthier) and Control risk factors (learn risk factor modification) Scale for measuring improvement of personal goals Diagnosis & Disease Process Outcomes/Goals: Pt IDs own risk factors & lifestyle modifications by Session 10, Verbalizes symptoms of angina & response by session 3., Pt independently manages and Other Additional Outcomes/Goals: Plan/Interventions: Assist Pt to ID & engage in lifestyle modification to reduce CVD risk, Instruct on individual risk factors, Review symptoms of angina & emergency actions, Review secondary diagnosis & identify educational needs. and Other see comment 30 day Reassessments:: Not Met 30 day Reassessments:: Not Met 30 day Reassessments:: Not Met 30 day Reassessments:: Not Met Final Reassessments:: Not Met Safety Referral to Physical Therapy: No Referral to [facility] Case Management: No Fall Risk Assessed:: Yes Assistive Devices:: None Exercise - Initial Assessment Visit Date of Eval: 06/19/23 (initial eval) Mets: Pre-: >3 METS for 30 minutes by discharge, >5 METS for 30 minutes by discharge, >7 METS for 30 minutes by discharge and Unable to meet goal due to: (see comment below) Physician Prescribed Exercise Modalities: Treadmill, Rower, Airdyne, NuStep, SciFit and Lateral [place] Frequency: 2x/week for 18 weeks [36 sessions] and 3x/week for 12 weeks [36 sessions] Intensity: 60-80% of age predicted maximum heart rate reserve Duration: 30 - 45 minutes Current METSs:: 3 Target Heart Rate:: 92-116 Resting Blood Pressure: 112/60 EKG Type: SR with nonspecific T abnormality Outcomes & Goals Goals:: Verbalizes understanding of THR, RPE & goal METS by session 6, Documents in home exercise log/reports 30 min aerobic 5 day/wk by DC, Demonstrates accurate pulse taking by DC and Other additional outcome/goals: see below Intervention & Plan Exercise Program Goals: Instruct on personal THR & RPE, Instruct on MET level & personal MET goal, Show patient to take own pulse /validate performance until accurate, Instruct on home exercise and Other additional plan/int Physical Activity Home Exercise Physical Activity - Home Exercise: Safe Exercise, Warm-up, Self-monitoring, Cool-Down, Home Exercise > 30 min Daily and Sitting Time <3 hours/daily Outcomes & Goals Outcomes/Goals: Demonstrates correct Warm-up/exercise Cool-Down (S3) if = 2.5 METs, Verbalizes symptoms of exercise intolerance by Session 3 (S3), Demonstrate safe equipment use (S3) & follows exercise prescrition (6) and Other: See below Intervention & Plan Plan/Intervention: Instruct warm-up & cool-down if exercising at > 2 METs, Instruct on symptoms of exercise intolerance & actions to take, Instruct & monitor on saf, Assess intial functional capacity & safety risk and Other See below Nutrition - Initial Assessment Program Goals Nutrition Program Goals Patient has diagnosis of Hyperlipidemia (ICD E78)?: Yes Visit Date of Eval: 06/19/23 (initial eval) Cholesterol/Lipids (Other Core Measures) Determine presence & major risk factors that modify LDL goal: Cigarette smoking, Hypertension or hypertensive medication, Low HDL cholesterol <40 mg/dL*, Family history of premature CHD in Male < 55 years: female <65 yearsFa and Age men > 45 years; women >/= 55 years Outcomes/Goals: Pt IDs own risk factors & lifestyle modifications by Session 10, Verbalizes symptoms of angina & response by session 3., Pt independently manages and Other Additional Outcomes/Goals: Intervention/Plan: Advocate for lipid panel cholesterol medication if applicable, Instruct on personal lipid levels & lipid goals/NCEP guidelines, Instruct on cholesterol and Other additional plan/int Diabetes (Other Core Measures) Diabetes Type: Not Applicable Weight Mgt (Other Care) Height: 5 ft 1 in Weight:: 126 lb BMI: 23.8 Diagnosis Overweight/Obesity BMI> 30% ICD-10 E66: No Diagnosis High BMI/Morbid Obesity BMI> 35% ICD-10 Z68: No Outcomes/Goals: Pt sets, maintains & shows weight loss goal & trend during rehab and Other additional outcomes/goals Intervention/Plan: Instruct on ideal BMI & set weight loss goal w/patient, Assist pt to ID & incorporate diet changes for weight loss by S9, Refer to Structured Weight Loss program as appropriate, Encourage goal of using 250- 300dcal per session for weight loss and Other additional plan/interventions Healthy Eating Habits Will attend diet classes:: Yes Outcomes/Goals:: Consume diet rich in vegs,fruits,whole grain/high fiber,fish,lean meat, Limit sat/trans fats,cholesterol & added salts & sugars and Other additional outcome/goals: Intervention/Plan:: Assess current eating habits and Other Additional plan/interventions Education Gave educational materials for:: Signs & symptoms of hypoglycemia, Signs & symptoms of hyperglycemia, Relate diabetes to coronary artery disease and Healthy eating Core - Initial Assessment Visit Date of Eval: 06/19/23 (initial eval) Medication Compliance Preventative Medication(s):: ZAHIDA inhibitor, Ticagrelor/P2Y12 inhibitor, Statin/lipid and Beta carol H/O mental health issues: depression, anxiety, or addiction?: No Doesn?t believe in the benefits of treatment?: No Believes medications are unnecessary or harmful?: No Has a concern about medication side effects?: No Expresses concern over the cost of medications?: No Outcomes/Goals: Verbalizes medications,desired effect & common side effects @ DC, Pt self-reports following medication regimen, Keeps card in wallet w/medications listed by DC and Other additional outcome/goals: Interventions/plans: Instruct on medication effects & side effects, Review medication list w/patient every two weeks, Instruct importance of taking meds as ordered & assist problem solving and Other additional Tobacco Use Tobacco Use: Non-smoker Hypertension Resting Blood Pressure:: 112/60 [place] [employer] Hypertension Guidelines Outcomes/Goals: Able to verbalize/achieve optimal blood pressure <130/80, Incorporates diet changes & exercise for blood pressure control by DC and Other additional outcomes/goals Interventions/plan: Instruct on optimal blood pressure, hypertension & medications, Instruct on effects of sodium, alcohol, stress, exercise & hypertension and Other additional plan/interventions Tobacco Cessation Referral Smoking Cessation Referral:: No Individual Education/Counseling:: No Education Schedule Given:: Yes Psychosocial - Initial Assess VIsit Date of Eval: 06/19/23 (initial eval) History of previous Mental disease:: No (Pt does suffer from PTSD but states she is not depressed or have anxiety) Target Goals Target Goals Outcomes/Goals: See list Psychosocial Outcomes/Goals:: ID's personal stressors & 2 strategies to manage stress by discharge and Other Additional outcome/goals: Intervention/Plan: See List Interventions/Plan:: Assess stressors,coping strategies & signs of derpression on admission, Instruct/assist pt to develop coping & personal stress Mgt strategies, Refer to Behavioral Health if appropriate, Refer to Physician if appropriate, Instruct patient to recognize signs & symptoms of depression, Instruct patient to recog and Other additional plan/intervention Patient Health Questionnaire PHQ-9 Screening Initial Assessment: 1. Little interest or pleasure in doing things: Not at all 2. Feeling down, depressed, or hopeless: Not at all 3. Trouble falling or staying asleep, or sleeping too much: Not at all 4. Feeling tired or having little energy: Several days 5. Poor appetite or overeating: Not at all 6. Feeling bad about yourself -- or that you are a failure or have let yourself or your family down: Not at all 7. Trouble concentrating on things, such as reading the newspaper or watching television: Not at all 8. Moving or speaking so slowly that other people could have noticed. Or the opposite - being so fidgety or restless that you have been moving around a lot more than usual: Not at all 9. Thoughts that you would be better off , or of hurting yourself in some way: Not at all How difficult have these problems made it for you to do your work, take care of things at home, or get along with other people?: Not difficult at all Total Score: 1 LUIS-Q SV Test Statements CAD is a disease of the arteries in the heart: False Examples of risk factors for heart disease: True Angina is chest pain or discomfort: True The benefits of resistance training include: True Eating more meat and dairy products: False Anti-platelet medications such as aspirin are important: True The only effective way to manage stress: False An exercise warm-up slowly increases heart rate: True Prepared, processed foods usually have high sodium: True Depression is common after a heart attack: True The statin medications lower cholesterol: True To control blood pressure, lower the amount of sodium: True If someone gets chest discomfort during walking: I Don't Know Transfats are partially hydrogenated vegetable oils: True Sleep apnea that is not treated increases the risk: True To control cholesterol, one should become a vegetarian: False Someone knows if he/she is exercising at the right level: I Don't Know Diabetes cannot be prevented with exercise & health eating: False Stress is a large risk for heart attack: True A diet that can help lower blood pressure is rich in: True Total Score Total Correct Responses: 17 Self-Efficacy 6-Item Scale Initial Assessment: We would like to know how confident you are in doing certain activities. Please select your confidence level for: Fatigue Select Number: 8 Physical Discomfort or Pain Select Number: 8 Emotional Distress Select Number: 8 Other Symptoms or Health Problems Select Number: 4 Different Tasks and Activities Select Number: 8 Medication Select Number: 8 Total Score:: 7 Nutrition Survey Nutrition Survey Instructions Scoring Instructions Nutrition Survey Initial: Have you lost >10 lbs over the past 2 months without trying?: No Are you following a special diet at home for diabetes, low fat, or low salt?: No Are you interested in meeting with a dietitian for help understanding your diet?: Yes Do you eat less than 3 meals a day?: Yes Do you eat fatty meats (poole, sausage, ribs, etc), fried foods, desserts, large amounts of salad dressings, margarine, butter, or cheese most days?: No Do you have food allergies? [Enter types in comment field]: Yes Do you eat in restaurants more than 3 times a week?: No Do you season food with salt, seasoning salt, or garlic salt?: No Do you used canned, boxed, frozen meals, or soups, seasoning packets?: No Total Score:: 3 Exercise - Final/Discharge Physician Prescribed Exercise Modalities: Treadmill, Rower, Airdyne, NuStep, SciFit and Lateral [place] Frequency: 2x/week for 18 weeks [36 sessions] and 3x/week for 12 weeks [36 sessions] Intensity: 60-80% of age predicted maximum heart rate reserve Current METSs:: 3 Target Heart Rate:: 92-116 Nutrition - 30-Day Assessment Weight Mgt (Other Care) Height: 5 ft 1 in Weight:: 126 lb BMI: 23.8 Nutrition - 60-Day Assessment Weight Mgt (Other Care) Height: 5 ft 1 in Weight:: 126 lb BMI: 23.8 Core - Final Assessment Hypertension Resting Blood Pressure:: 112/60 [place] [employer] Hypertension Guidelines Core - 60-Day Assessment Hypertension Resting Blood Pressure:: 112/60 [place] [employer] Hypertension Guidelines Psychosocial - 30-Day Assess Target Goals Target Goals Psychosocial - 60-Day Assess Target Goals Target Goals Psychosocial - 90-Day Assess Target Goals Target Goals Psychosocial - Final Assessmen Target Goals Target Goals Nutrition - 90-Day Assessment Weight Mgt (Other Care) Height: 5 ft 1 in Weight:: 126 lb BMI: 23.8 Nutrition - Final Assessment Program Goals Patient has diagnosis of Hyperlipidemia (ICD E78)?: Yes Weight Mgt (Other Care) Height: 5 ft 1 in Weight:: 126 lb BMI: 23.8
[2023-06-19 13:26] VITALS: BP 112/60; PULSE 71; O2SAT 98
[2023-06-19 14:06] VITALS: BP 112/60; BMI 23.8
[2023-06-19 14:10] VITALS: BMI 23.8
== END | disposition home or self-care (01) ==
PROVIDERS: PCP Family Medicine; Referring Provider Internal Medicine Cardiovascular Disease; Visit Provider Internal Medicine Cardiovascular Disease
DX: Z95.5 Presence of coronary angioplasty implant and graft (principal); J44.9 Chronic obstructive pulmonary disease, unspecified; I25.10 Atherosclerotic heart disease of native coronary artery without angina pectoris; Z86.73 Personal history of transient ischemic attack (TIA), and cerebral infarction without residual deficits; E78.5 Hyperlipidemia, unspecified; Z90.49 Acquired absence of other specified parts of digestive tract; Z87.891 Personal history of nicotine dependence; R06.02 Shortness of breath; R53.83 Other fatigue

== ENCOUNTER 2023-06-21 10:44 | Outpatient (RCR) | payer MEDICARE, MEDICAID, SELFPAY ==
[2023-06-19 14:06] VITALS: BMI 23.8
== END 2023-06-26 23:59 ==
LOC: CR 10:44
PROVIDERS: PCP Family Medicine; Referring Provider Internal Medicine Cardiovascular Disease; Visit Provider Internal Medicine Cardiovascular Disease
DX: Z95.5 Presence of coronary angioplasty implant and graft (principal); I25.5 Ischemic cardiomyopathy; I25.10 Atherosclerotic heart disease of native coronary artery without angina pectoris; Z98.61 Coronary angioplasty status; I21.4 Non-ST elevation (NSTEMI) myocardial infarction; I31.39 Other pericardial effusion (noninflammatory); Z86.73 Personal history of transient ischemic attack (TIA), and cerebral infarction without residual deficits; E78.5 Hyperlipidemia, unspecified; F17.211 Nicotine dependence, cigarettes, in remission; I67.1 Cerebral aneurysm, nonruptured
CPT/HCPCS: 93798

== ENCOUNTER 2023-07-24 11:15 | Outpatient (RCR) | payer MEDICARE, MEDICAID, SELFPAY ==
[2023-06-19 14:06] VITALS: BMI 23.8
--- NOTE | 2023-07-19 07:21 | CR.ITP_ITS ---
Exercise - Initial Assessment Visit Session #:: 9 Nutrition - Initial Assessment Weight Mgt (Other Care) Height: 5 ft 1 in Weight:: 122 lb 8 oz BMI: 23.1 Psychosocial - Initial Assess Target Goals Target Goals Patient Health Questionnaire PHQ-9 Screening 30-Day Re-eval Assessment: 1. Little interest or pleasure in doing things: Not at all 2. Feeling down, depressed, or hopeless: Not at all 3. Trouble falling or staying asleep, or sleeping too much: Not at all 4. Feeling tired or having little energy: Several days 5. Poor appetite or overeating: Not at all 6. Feeling bad about yourself -- or that you are a failure or have let yo urself or your family down: Not at all 7. Trouble concentrating on things, such as reading the newspaper or watching television: Not at all 8. Moving or speaking so slowly that other people could have noticed. Or the opposite - being so fidgety or restless that you have been moving around a lot more than usual: Not at all 9. Thoughts that you would be better off , or of hurting yourself in some way: Not at all How difficult have these problems made it for you to do your work, take care of things at home, or get along with other people?: Not difficult at all Total Score: 1 Self-Efficacy 6-Item Scale 30-Day Re-eval Assessment: We would like to know how confident you are in doing certain activities. Please select your confidence level for: Fatigue Select Number: 8 Physical Discomfort or Pain Select Number: 8 Emotional Distress Select Number: 8 Other Symptoms or Health Problems Select Number: 4 Different Tasks and Activities Select Number: 8 Medication Select Number: 8 Total Score:: 7 Nutrition Survey Nutrition Survey Instructions Scoring Instructions Exercise - 30-day Assessment Visit Date of Eval: 07/19/23 Session #:: 9 Physician Prescribed Exercise Modalities: Treadmill, Airdyne and NuStep Frequency: 3x/week for 12 weeks [36 sessions] Intensity: 60-80% of age predicted maximum heart rate reserve Duration: 30 - 45 minutes Current METSs:: 4.5 Target Heart Rate:: 92-116 Current RPE:: 9.5-12.5 Maximum Excercise HR:: 106 Resting Blood Pressure: 126/72 Maximum Exercise Blood Pressure: 126/72 EKG Type: NSR to ST with a rare PVC Outcomes & Goals Goals:: Verbalizes understanding of THR, RPE & goal METS by session 6, Documents in home exercise log/reports 30 min aerobic 5 day/wk by DC, Demonstrates accurate pulse taking by DC and Other additional outcome/goals: see below Intervention & Plan Exercise Program Goals: Instruct on personal THR & RPE, Instruct on MET level & personal MET goal, Show patient to take own pulse /validate performance until accurate, Instruct on home exercise and Other additional plan/int 30-day Reassessments 30 day Reassessments:: Progressing Reassessment Notes & Comments:: RPE explained Physical Activity Home Exercise Physical Activity - Home Exercise: Safe Exercise, Warm-up, Self-monitoring, Cool-Down, Home Exercise > 30 min Daily and Sitting Time <3 hours/daily Outcomes & Goals Outcomes/Goals: Demonstrates correct Warm-up/exercise Cool-Down (S3) if = 2.5 METs, Verbalizes symptoms of exercise intolerance by Session 3 (S3), Demonstrate safe equipment use (S3) & follows exercise prescrition (6) and Other: See below Intervention & Plan Plan/Intervention: Instruct warm-up & cool-down if exercising at > 2 METs, Instruct on symptoms of exercise intolerance & actions to take, Instruct & monitor on saf, Assess intial functional capacity & safety risk and Other See below 30-day Reassessments 30 day Reassessments:: Progressing Reassessment Notes & Comments:: Warm up encouraged Nutrition - 30-Day Assessment Program Goals Nutrition Program Goals Patient has diagnosis of Hyperlipidemia (ICD E78)?: Yes Visit Date of Eval: 07/19/23 Session #:: 9 Cholesterol/Lipids (Other Core Measures) Determine presence & major risk factors that modify LDL goal: Cigarette smoking, Hypertension or hypertensive medication, Low HDL cholesterol <40 mg/dL*, Family history of premature CHD in Male < 55 years: female <65 yearsFa and Age men > 45 years; women >/= 55 years Outcomes/Goals: Pt IDs own risk factors & lifestyle modifications by Session 10, Verbalizes symptoms of angina & response by session 3., Pt independently manages and Other Additional Outcomes/Goals: Intervention/Plan: Advocate for lipid panel cholesterol medication if applicable, Instruct on personal lipid levels & lipid goals/NCEP guidelines, Instruct on cholesterol and Other additional plan/int 30-day Reassessments:: Progressing Reassessment Notes & Comments:: pt to attend nutrition class Diabetes (Other Core Measures) Diabetes Type: Not Applicable Weight Mgt (Other Care) Height: 5 ft 1 in Weight:: 122 lb 8 oz BMI: 23.1 Diagnosis Overweight/Obesity BMI> 30% ICD-10 E66: No Diagnosis High BMI/Morbid Obesity BMI> 35% ICD-10 Z68: No Outcomes/Goals: Pt sets, maintains & shows weight loss goal & trend during rehab and Other additional outcomes/goals Intervention/Plan: Instruct on ideal BMI & set weight loss goal w/patient, Assist pt to ID & incorporate diet changes for weight loss by S9, Refer to Structured Weight Loss program as appropriate, Encourage goal of using 250- 300dcal per session for weight loss and Other additional plan/interventions 30 day Reassessments:: Progressing Reassessment Notes & Comments:: pt to attend nutrition class Healthy Eating Habits Will attend diet classes:: Yes Outcomes/Goals:: Consume diet rich in vegs,fruits,whole grain/high fiber,fish,lean meat, Limit sat/trans fats,cholesterol & added salts & sugars and Other additional outcome/goals: Intervention/Plan:: Assess current eating habits and Other Additional plan/interventions 30-day Reassessments:: Progressing Reassessment Notes & Comments:: pt to attend nutrition class Education Gave educational materials for:: Signs & symptoms of hypoglycemia, Signs & symptoms of hyperglycemia, Relate diabetes to coronary artery disease and Healthy eating Nutrition - 60-Day Assessment Weight Mgt (Other Care) Height: 5 ft 1 in Weight:: 122 lb 8 oz BMI: 23.1 Core - 30-Day Assessment Visit Date of Eval: 07/19/23 Session #:: 9 Medication Compliance Preventative Medication(s):: ZAHIDA inhibitor, Ticagrelor/P2Y12 inhibitor, Statin/lipid and Beta carol H/O mental health issues: depression, anxiety, or addiction?: No Doesn?t believe in the benefits of treatment?: No Believes medications are unnecessary or harmful?: No Has a concern about medication side effects?: No Expresses concern over the cost of medications?: No Outcomes/Goals: Verbalizes medications,desired effect & common side effects @ DC, Pt self-reports following medication regimen, Keeps card in wallet w/medications listed by DC and Other additional outcome/goals: Interventions/plans: Instruct on medication effects & side effects, Review medication list w/patient every two weeks, Instruct importance of taking meds as ordered & assist problem solving and Other additional 30-day Reassessments:: Progressing Reassessment Notes & Comments:: pt encouraged to take her meds Tobacco Use Tobacco Use: Non-smoker Hypertension Resting Blood Pressure:: 126/72 [employer] Hypertension Guidelines Peak Exercise Blood Pressure:: 126/72 Outcomes/Goals: Able to verbalize/achieve optimal blood pressure <130/80, Incorporates diet changes & exercise for blood pressure control by DC and Other additional outcomes/goals Interventions/plan: Instruct on optimal blood pressure, hypertension & medications, Instruct on effects of sodium, alcohol, stress, exercise &hypertension and Other additional plan/interventions 30 day Reassessments:: Progressing Reassessment Notes & Comments:: pt encouraged to take her meds Tobacco Cessation Referral Smoking Cessation Referral:: No Individual Education/Counseling:: No Education Schedule Given:: Yes Core - Final Assessment Hypertension [employer] Hypertension Guidelines Reassessment Notes & Comments:: pt encouraged to take her meds Core - 90 Day Assessment Hypertension [employer] Hypertension Guidelines Reassessment Notes & Comments:: pt encouraged to take her meds Psychosocial - 30-Day Assess VIsit Date of Eval: 07/19/23 Session #:: 9 History of previous Mental disease:: No Target Goals Target Goals Outcomes/Goals: See list Psychosocial Outcomes/Goals:: ID's personal stressors & 2 strategies to manage stress by discharge and Other Additional outcome/goals: Intervention/Plan: See List Interventions/Plan:: Assess stressors,coping strategies & signs of derpression on admission, Instruct/assist pt to develop coping & personal stress Mgt strategies, Refer to Behavioral Health if appropriate, Refer to Physician if appropriate, Instruct patient to recognize signs & symptoms of depression, Instruct patient to recog and Other additional plan/intervention 30-day Reassessments: 30 day Reassessments:: Met Psychosocial - 60-Day Assess Target Goals Target Goals Outcomes/Goals: See list Psychosocial Outcomes/Goals:: ID's personal stressors & 2 strategies to manage stress by discharge and Other Additional outcome/goals: Psychosocial - 90-Day Assess Target Goals Target Goals Psychosocial - Final Assessmen Target Goals Target Goals Nutrition - 90-Day Assessment Weight Mgt (Other Care) Height: 5 ft 1 in Weight:: 122 lb 8 oz BMI: 23.1 Nutrition - Final Assessment Weight Mgt (Other Care) Height: 5 ft 1 in Weight:: 122 lb 8 oz BMI: 23.1
[2023-07-19 07:28] VITALS: BP 126/72; BMI 23.1
== END 2023-07-25 23:59 ==
LOC: CR 11:15
PROVIDERS: PCP Family Medicine; Referring Provider Internal Medicine Cardiovascular Disease; Visit Provider Internal Medicine Cardiovascular Disease
DX: Z95.5 Presence of coronary angioplasty implant and graft (principal); I25.5 Ischemic cardiomyopathy; I25.10 Atherosclerotic heart disease of native coronary artery without angina pectoris; Z98.61 Coronary angioplasty status; I21.4 Non-ST elevation (NSTEMI) myocardial infarction; I31.39 Other pericardial effusion (noninflammatory); Z86.73 Personal history of transient ischemic attack (TIA), and cerebral infarction without residual deficits; E78.5 Hyperlipidemia, unspecified; F17.211 Nicotine dependence, cigarettes, in remission; I67.1 Cerebral aneurysm, nonruptured
CPT/HCPCS: 93798

== ENCOUNTER → 2023-08-07 | Outpatient (CLI) | payer MEDICARE, MEDICAID, SELFPAY ==
[2023-06-19 14:06] VITALS: BMI 23.8
[2023-07-19 07:28] VITALS: BMI 23.1
--- NOTE | 2023-08-07 09:44 | ECHOL_ITS ---
Reason For Study: ISCHEMIC CMP Procedure This was a limited 2D transthoracic echocardiogram. Exam performed in department. Left Ventricle Normal LV size. Left ventricular systolic function is normal. The estimated ejection fraction is 55 %. No regional wall motion abnormalities noted. Right Ventricle Normal RV size. Normal systolic function. Atria Normal left atrium. Normal right atrium. Mitral Valve Normal mitral valve. Tricuspid Valve Normal tricuspid valve. Mild tricuspid valve insufficiency. Aortic Valve Trisinus/trileaflet aortic valve. Moderate focal aortic valve thickening. Pulmonic Valve Normal pulmonic valve. Great Vessels Normal aortic root. The pulmonary artery is normal size. Inferior vena cava collapse with sniff. Pericardium/Pleural No pericardial effusion. MMode/2D Measurements & Calculations LVIDd: 4.3 cm IVSd: 0.90 cm Ao root diam: 2.9 cm LVIDs: 2.9 cm LVPWd: 0.90 cm FS: 32.1 % LAV(MOD-bp): 35.8 ml LVAd ap4: 23.0 cm2 LVAd ap2: 20.0 cm2 LAV(MOD-bp) Indexed: 23.4 ml/m2 LVLd ap4: 6.7 cm LVLd ap2: 6.5 cm LAV(MOD-sp2): 35.9 ml EDV(MOD-sp4): 64.4 ml EDV(MOD-sp2): 51.1 ml LAV(MOD-sp4): 34.2 ml EDV(sp4-el): 67.6 ml EDV(sp2-el): 52.3 ml LVAs ap4: 14.0 cm2 LVAs ap2: 12.9 cm2 LVLs ap4: 5.6 cm LVLs ap2: 5.9 cm ESV(MOD-sp4): 29.7 ml ESV(MOD-sp2): 24.0 ml ESV(sp4-el): 29.5 ml ESV(sp2-el): 24.1 ml EF(MOD-sp4): 53.9 % EF(MOD-sp2): 53.1 % EF(sp4-el): 56.3 % SV(MOD-sp4): 34.7 ml SV(MOD-sp2): 27.1 ml SV(sp4-el): 38.1 ml LA dimension(2D): 3.5 cm LA A4 area: 13.8 cm2 RA A4 area: 10.5 cm2 Doppler Measurements & Calculations TR max deo: 196.6 cm/sec TR max P.5 mmHg ECHO/Echo, Limited Study Interpretation Summary Normal LV size. Left ventricular systolic function is normal. The estimated ejection fraction is 55 %. Moderate focal aortic valve thickening. Ordering Physician: Elly Post Referring Physician: Rosy Lazo Performed By: Marley Oliveros, PERFECTO, RVT
== END | disposition home or self-care (01) ==
LOC: CVS 09:43
PROVIDERS: PCP Family Medicine; Referring Provider Nurse Practitioner Gerontology; Visit Provider Nurse Practitioner Gerontology
DX: I25.5 Ischemic cardiomyopathy (principal)
CPT/HCPCS: 93308

== ENCOUNTER 2023-08-21 11:15 | Outpatient (RCR) | payer MEDICARE, MEDICAID, SELFPAY ==
[2023-07-19 07:28] VITALS: BMI 23.1
[2023-07-26 00:30] VITALS: BP 126/72
--- NOTE | 2023-08-21 08:34 | CR.ITP_ITS ---
Nutrition - Initial Assessment Weight Mgt (Other Care) Height: 5 ft 1 in Weight:: 121 lb BMI: 22.8 Psychosocial - Initial Assess Target Goals Target Goals Patient Health Questionnaire PHQ-9 Screening 60-Day Re-eval Assessment: 1. Little interest or pleasure in doing things: Not at all 2. Feeling down, depressed, or hopeless: Not at all 3. Trouble falling or staying asleep, or sleeping too much: Not at all 4. Feeling tired or having little energy: Several days 5. Poor appetite or overeating: Not at all 6. Feeling bad about yourself -- or that you are a failure or have let yourself or your family down: Not at all 7. Trouble concentrating on things, such as reading the newspaper or watching television: Not at all 8. Moving or speaking so slowly that other people could have noticed. Or the opposite - being so fidgety or restless that you have been moving around a lot more than usual: Not at all 9. Thoughts that you would be better off , or of hurting yourself in some way: Not at all How difficult have these problems made it for you to do your work, take care of things at home, or get along with other people?: Not difficult at all Total Score: 1 Self-Efficacy 6-Item Scale 60-Day Re-eval Assessment: We would like to know how confident you are in doing certain activities. Please select your confidence level for: Fatigue Select Number: 8 Physical Discomfort or Pain Select Number: 8 Emotional Distress Select Number: 8 Other Symptoms or Health Problems Select Number: 4 Different Tasks and Activities Select Number: 8 Medication Select Number: 8 Total Score:: 7 Nutrition Survey Nutrition Survey Instructions Scoring Instructions Exercise - 60-day Assessment Visit Date of Eval: 08/21/23 Session #:: 22 Physician Prescribed Exercise Modalities: Treadmill, Airdyne and NuStep Frequency: 3x/week for 12 weeks [36 sessions] Intensity: 60-80% of age predicted maximum heart rate reserve Duration: 30 - 45 minutes Current METSs:: 6.1 Target Heart Rate:: 92-116 Current RPE:: 11-12 Maximum Excercise HR:: 118 Resting Blood Pressure: 102/70 Maximum Exercise Blood Pressure: 130/64 EKG Type: NSR to ST with a rare pac and pvc Outcomes & Goals Goals:: Verbalizes understanding of THR, RPE & goal METS by session 6, Documents in home exercise log/reports 30 min aerobic 5 day/wk by DC, Demonstrates accurate pulse taking by DC and Other additional outcome/goals: see below Intervention & Plan Exercise Program Goals: Instruct on personal THR & RPE, Instruct on MET level & personal MET goal, Show patient to take own pulse /validate performance until accurate, Instruct on home exercise and Other additional plan/int 30-day Reassessments 30 day Reassessments:: Progressing Reassessment Notes & Comments:: THR explained Physical Activity Home Exercise Physical Activity - Home Exercise: Safe Exercise, Warm-up, Self-monitoring, Cool-Down, Home Exercise > 30 min Daily and Sitting Time <3 hours/daily Outcomes & Goals Outcomes/Goals: Demonstrates correct Warm-up/exercise Cool-Down (S3) if = 2.5 METs, Verbalizes symptoms of exercise intolerance by Session 3 (S3), Demonstrate safe equipment use (S3) & follows exercise prescrition (6) and Other: See below Intervention & Plan Plan/Intervention: Instruct warm-up & cool-down if exercising at > 2 METs, Instruct on symptoms of exercise intolerance & actions to take, Instruct & monitor on saf, Assess intial functional capacity & safety risk and Other See below 30-day Reassessments 30 day Reassessments:: Progressing Reassessment Notes & Comments:: cool down encouraged Nutrition - 30-Day Assessment Weight Mgt (Other Care) Height: 5 ft 1 in Weight:: 121 lb BMI: 22.8 Nutrition - 60-Day Assessment Program Goals Nutrition Program Goals Patient has diagnosis of Hyperlipidemia (ICD E78)?: Yes Visit Date of Eval: 08/21/23 Session #:: 22 Cholesterol/Lipids (Other Core Measures) Determine presence & major risk factors that modify LDL goal: Cigarette smoking, Hypertension or hypertensive medication, Low HDL cholesterol <40 mg/dL*, Family history of premature CHD in Male < 55 years: female <65 yearsFa and Age men > 45 years; women >/= 55 years Outcomes/Goals: Pt IDs own risk factors & lifestyle modifications by Session 10, Verbalizes symptoms of angina & response by session 3., Pt independently manages and Other Additional Outcomes/Goals: Intervention/Plan: Advocate for lipid panel cholesterol medication if applicable, Instruct on personal lipid levels & lipid goals/NCEP guidelines, Instruct on cholesterol and Other additional plan/int Referral to dietitian:: Yes 30-day Reassessments:: Met Reassessment Notes & Comments:: met 07/31/23 Diabetes (Other Core Measures) Diabetes Type: Not Applicable Weight Mgt (Other Care) Height: 5 ft 1 in Weight:: 121 lb BMI: 22.8 Diagnosis Overweight/Obesity BMI> 30% ICD-10 E66: No Diagnosis High BMI/Morbid Obesity BMI> 35% ICD-10 Z68: No Outcomes/Goals: Pt sets, maintains & shows weight loss goal & trend during rehab and Other additional outcomes/goals Intervention/Plan: Instruct on ideal BMI & set weight loss goal w/patient, Assist pt to ID & incorporate diet changes for weight loss by S9, Refer to Structured Weight Loss program as appropriate, Encourage goal of using 250- 300dcal per session for weight loss and Other additional plan/interventions 30 day Reassessments:: Met Healthy Eating Habits Will attend diet classes:: Yes Outcomes/Goals:: Consume diet rich in vegs,fruits,whole grain/high fiber,fish,lean meat, Limit sat/trans fats,cholesterol & added salts & sugars and Other additional outcome/goals: Intervention/Plan:: Assess current eating habits and Other Additional plan/interventions 30-day Reassessments:: Met Education Gave educational materials for:: Signs & symptoms of hypoglycemia, Signs & symptoms of hyperglycemia, Relate diabetes to coronary artery disease and Healthy eating Core - 60-Day Assessment Visit Date of Eval: 08/21/23 Session #:: 22 Medication Compliance Preventative Medication(s):: ZAHIDA inhibitor, Ticagrelor/P2Y12 inhibitor, Statin/lipid and Beta carol H/O mental health issues: depression, anxiety, or addiction?: No Doesn?t believe in the benefits of treatment?: No Believes medications are unnecessary or harmful?: No Has a concern about medication side effects?: No Expresses concern over the cost of medications?: No Outcomes/Goals: Verbalizes medications,desired effect & common side effects @ DC, Pt self-reports following medication regimen, Keeps card in wallet w/medications listed by DC and Other additional outcome/goals: Interventions/plans: Instruct on medication effects & side effects, Review medic ation list w/patient every two weeks, Instruct importance of taking meds as ordered & assist problem solving and Other additional 30-day Reassessments:: Met Tobacco Use Tobacco Use: Non-smoker Hypertension Resting Blood Pressure:: 102/70 [place] [employer] Hypertension Guidelines Peak Exercise Blood Pressure:: 130/64 Outcomes/Goals: Able to verbalize/achieve optimal blood pressure <130/80, Inco rporates diet changes & exercise for blood pressure control by DC and Other additional outcomes/goals Interventions/plan: Instruct on optimal blood pressure, hypertension & med ications, Instruct on effects of sodium, alcohol, stress, exercise &hypertension and Other additional plan/interventions 30 day Reassessments:: Met Tobacco Cessation Referral Smoking Cessation Referral:: No Individual Education/Counseling:: No Education Schedule Given:: Yes Psychosocial - 30-Day Assess Target Goals Target Goals Outcomes/Goals: See list Psychosocial Outcomes/Goals:: ID's personal stressors & 2 strategies to manage stress by discharge and Other Additional outcome/goals: Psychosocial - 60-Day Assess VIsit Date of Eval: 08/21/23 Session #:: 22 History of previous Mental disease:: No Target Goals Target Goals Outcomes/Goals: See list Psychosocial Outcomes/Goals:: ID's personal stressors & 2 strategies to manage stress by discharge and Other Additional outcome/goals: Intervention/Plan: See List Interventions/Plan:: Assess stressors,coping strategies & signs of derpression on admission, Instruct/assist pt to develop coping & personal stress Mgt strategies, Refer to Behavioral Health if appropriate, Refer to Physician if appropriate, Instruct patient to recognize signs & symptoms of depression, Instruct patient to recog and Other additional plan/intervention 30-day Reassessments: 30 day Reassessments:: Met Psychosocial - 90-Day Assess Target Goals Target Goals Psychosocial - Final Assessmen Target Goals Target Goals Nutrition - 90-Day Assessment Weight Mgt (Other Care) Height: 5 ft 1 in Weight:: 121 lb BMI: 22.8 Nutrition - Final Assessment Weight Mgt (Other Care) Height: 5 ft 1 in Weight:: 121 lb BMI: 22.8
[2023-08-21 08:45] VITALS: BP 102/70; BMI 22.8
== END 2023-08-25 23:59 ==
LOC: CR 11:15
PROVIDERS: PCP Family Medicine; Referring Provider Internal Medicine Cardiovascular Disease; Visit Provider Internal Medicine Cardiovascular Disease
DX: Z95.5 Presence of coronary angioplasty implant and graft (principal); I25.5 Ischemic cardiomyopathy; I25.10 Atherosclerotic heart disease of native coronary artery without angina pectoris; Z98.61 Coronary angioplasty status; I21.4 Non-ST elevation (NSTEMI) myocardial infarction; I31.39 Other pericardial effusion (noninflammatory); Z86.73 Personal history of transient ischemic attack (TIA), and cerebral infarction without residual deficits; E78.5 Hyperlipidemia, unspecified; F17.211 Nicotine dependence, cigarettes, in remission; I67.1 Cerebral aneurysm, nonruptured
CPT/HCPCS: 93798; 97802

== ENCOUNTER 2023-09-23 11:30 | Outpatient (RCR) | payer MEDICARE, MEDICAID, SELFPAY ==
[2023-08-26 00:24] VITALS: BP 102/70; BP 126/72
--- NOTE | 2023-09-18 09:54 | PCM.CR.ITP ---
Nutrition - Initial Assessment Weight Mgt (Other Care) Height: 5 ft 1 in Weight:: 118 lb 8 oz BMI: 22.4 Psychosocial - Initial Assess Target Goals Target Goals Patient Health Questionnaire PHQ-9 Screening 90-Day Re-eval Assessment: 1. Little interest or pleasure in doing things: Not at all 2. Feeling down, depressed, or hopeless: Not at all 3. Trouble falling or staying asleep, or sleeping too much: Not at all 4. Feeling tired or having little energy: Several days 5. Poor appetite or overeating: Not at all 6. Feeling bad about yourself -- or that you are a failure or have let yourself or your family down: Not at all 7. Trouble concentrating on things, such as reading the newspaper or watching television: Not at all 8. Moving or speaking so slowly that other people could have noticed. Or the opposite - being so fidgety or restless that you have been moving around a lot more than usual: Not at all 9. Thoughts that you would be better off , or of hurting yourself in some way: Not at all How difficult have these problems made it for you to do your work, take care of things at home, or get along with other people?: Not difficult at all Total Score: 1 Self-Efficacy 6-Item Scale 90-Day Re-eval Assessment: We would like to know how confident you are in doing certain activities. Please select your confidence level for: Fatigue Select Number: 8 Physical Discomfort or Pain Select Number: 8 Emotional Distress Select Number: 8 Other Symptoms or Health Problems Select Number: 4 Different Tasks and Activities Select Number: 8 Medication Select Number: 8 Total Score:: 7 Nutrition Survey Nutrition Survey Instructions Scoring Instructions Exercise - 90-day Assessment Visit Date of Eval: 09/18/23 Session #:: 33 Physician Prescribed Exercise Modalities: Treadmill, Airdyne and NuStep Frequency: 3x/week for 12 weeks [36 sessions] Intensity: 60-80% of age predicted maximum heart rate reserve Duration: 30 - 45 minutes Current METSs:: 6.5 Target Heart Rate:: 92-116 Current RPE:: 11-13 Maximum Excercise HR:: 111 Resting Blood Pressure: 120/60 Maximum Exercise Blood Pressure: 140/70 EKG Type: NSR to ST Outcomes & Goals Goals:: Verbalizes understanding of THR, RPE & goal METS by session 6, Documents in home exercise log/reports 30 min aerobic 5 day/wk by DC, Demonstrates accurate pulse taking by DC and Other additional outcome/goals: see below Intervention & Plan Exercise Program Goals: Instruct on personal THR & RPE, Instruct on MET level & personal MET goal, Show patient to take own pulse /validate performance until accurate, Instruct on home exercise and Other additional plan/int 30-day Reassessments 30 day Reassessments:: Met Physical Activity Home Exercise Physical Activity - Home Exercise: Safe Exercise, Warm-up, Self-monitoring, Cool-Down, Home Exercise > 30 min Daily and Sitting Time <3 hours/daily Outcomes & Goals Outcomes/Goals: Demonstrates correct Warm-up/exercise Cool-Down (S3) if = 2.5 METs, Verbalizes symptoms of exercise intolerance by Session 3 (S3), Demonstrate safe equipment use (S3) & follows exercise prescrition (6) and Other: See below Intervention & Plan Plan/Intervention: Instruct warm-up & cool-down if exercising at > 2 METs, Instruct on symptoms of exercise intolerance & actions to take, Instruct & monitor on saf, Assess intial functional capacity & safety risk and Other See below 30-day Reassessments 30 day Reassessments:: Met Nutrition - 30-Day Assessment Weight Mgt (Other Care) Height: 5 ft 1 in Weight:: 118 lb 8 oz BMI: 22.4 Nutrition - 60-Day Assessment Weight Mgt (Other Care) Height: 5 ft 1 in Weight:: 118 lb 8 oz BMI: 22.4 Core - 90 Day Assessment Visit Date of Eval: 09/18/23 Session #:: 33 Medication Compliance Preventative Medication(s):: ZAHIDA inhibitor, Ticagrelor/P2Y12 inhibitor, Statin/lipid and Beta carol H/O mental health issues: depression, anxiety, or addiction?: No Doesn?t believe in the benefits of treatment?: No Believes medications are unnecessary or harmful?: No Has a concern about medication side effects?: No Expresses concern over the cost of medications?: No Outcomes/Goals: Verbalizes medications,desired effect & common side effects @ DC, Pt self-reports following medication regimen, Keeps card in wallet w/medications listed by DC and Other additional outcome/goals: Interventions/plans: Instruct on medication effects & side effects, Review medication list w/patient every two weeks, Instruct importance of taking meds as ordered & assist problem solving and Other additional 30-day Reassessments:: Met Tobacco Use Tobacco Use: Non-smoker Hypertension Resting Blood Pressure:: 120/60 [place] [employer] Hypertension Guidelines Outcomes/Goals: Able to verbalize/achieve optimal blood pressure <130/80, Incorporates diet changes & exercise for blood pressure control by DC and Other additional outcomes/goals Interventions/plan: Instruct on optimal blood pressure, hypertension & medications, Instruct on effects of sodium, alcohol, stress, exercise &hypertension and Other additional plan/interventions 30 day Reassessments:: Met Tobacco Cessation Referral Smoking Cessation Referral:: No Individual Education/Counseling:: No Education Schedule Given:: Yes Psychosocial - 30-Day Assess Target Goals Target Goals Psychosocial - 60-Day Assess Target Goals Target Goals Psychosocial - 90-Day Assess VIsit Date of Eval: 09/18/23 Session #:: 33 History of previous Mental disease:: No Target Goals Target Goals Outcomes/Goals: See list Psychosocial Outcomes/Goals:: ID's personal stressors & 2 strategies to manage stress by discharge and Other Additional outcome/goals: Intervention/Plan: See List Interventions/Plan:: Assess stressors,coping strategies & signs of derpression on admission, Instruct/assist pt to develop coping & personal stress Mgt strategies, Refer to Behavioral Health if appropriate, Refer to Physician if appropriate, Instruct patient to recognize signs & symptoms of depression, Instruct patient to recog and Other additional plan/intervention 30-day Reassessments: 30 day Reassessments:: Met Psychosocial - Final Assessmen Target Goals Target Goals Nutrition - 90-Day Assessment Program Goals Nutrition Program Goals Patient has diagnosis of Hyperlipidemia (ICD E78)?: Yes Visit Date of Eval: 09/18/23 Session #:: 33 Cholesterol/Lipids (Other Core Measures) Determine presence & major risk factors that modify LDL goal: Cigarette smoking, Hypertension or hypertensive medication, Low HDL cholesterol <40 mg/dL*, Family history of premature CHD in Male < 55 years: female <65 yearsFa and Age men > 45 years; women >/= 55 years Outcomes/Goals: Pt IDs own risk factors & lifestyle modifications by Session 10, Verbalizes symptoms of angina & response by session 3., Pt independently manages and Other Additional Outcomes/Goals: Intervention/Plan: Advocate for lipid panel cholesterol medication if applicable, Instruct on personal lipid levels & lipid goals/NCEP guidelines, Instruct on cholesterol and Other additional plan/int Referral to dietitian:: Yes 30-day Reassessments:: Met Diabetes (Other Core Measures) Diabetes Type: Not Applicable Weight Mgt (Other Care) Height: 5 ft 1 in Weight:: 118 lb 8 oz BMI: 22.4 Diagnosis Overweight/Obesity BMI> 30% ICD-10 E66: No Diagnosis High BMI/Morbid Obesity BMI> 35% ICD-10 Z68: No Outcomes/Goals: Pt sets, maintains & shows weight loss goal & trend during rehab and Other additional outcomes/goals Intervention/Plan: Instruct on ideal BMI & set weight loss goal w/patient, Assist pt to ID & incorporate diet changes for weight loss by S9, Refer to Structured Weight Loss program as appropriate, Encourage goal of using 250-300dcal per session for weight loss and Other additional plan/interventions 30 day Reassessments:: Met Healthy Eating Habits Will attend diet classes:: Yes Outcomes/Goals:: Consume diet rich in vegs,fruits,whole grain/high fiber,fish,lean meat, Limit sat/trans fats,cholesterol & added salts & sugars and Other additional outcome/goals: Intervention/Plan:: Assess current eating habits and Other Additional plan/interventions 30-day Reassessments:: Met Education Gave educational materials for:: Signs & symptoms of hypoglycemia, Signs & symptoms of hyperglycemia, Relate diabetes to coronary artery disease and Healthy eating Nutrition - Final Assessment Weight Mgt (Other Care) Height: 5 ft 1 in Weight:: 118 lb 8 oz BMI: 22.4
[2023-09-18 10:02] VITALS: BP 120/60; BMI 22.4
== END 2023-09-24 23:59 ==
LOC: CR 11:30
PROVIDERS: PCP Family Medicine; Referring Provider Internal Medicine Cardiovascular Disease; Visit Provider Internal Medicine Cardiovascular Disease
DX: Z95.5 Presence of coronary angioplasty implant and graft (principal); I25.5 Ischemic cardiomyopathy; I25.10 Atherosclerotic heart disease of native coronary artery without angina pectoris; Z98.61 Coronary angioplasty status; I21.4 Non-ST elevation (NSTEMI) myocardial infarction; I31.39 Other pericardial effusion (noninflammatory); Z86.73 Personal history of transient ischemic attack (TIA), and cerebral infarction without residual deficits; E78.5 Hyperlipidemia, unspecified; F17.211 Nicotine dependence, cigarettes, in remission; I67.1 Cerebral aneurysm, nonruptured
CPT/HCPCS: 93798

== ENCOUNTER 2023-09-25 07:06 | Outpatient (RCR) | payer MEDICARE, MEDICAID, SELFPAY ==
[2023-09-18 10:02] VITALS: BMI 22.4
[2023-09-25 00:19] VITALS: BP 102/70; BP 120/60; BP 126/72
== END 2023-10-25 23:59 ==
LOC: CR 07:06
PROVIDERS: PCP Family Medicine; Referring Provider Internal Medicine Cardiovascular Disease; Visit Provider Internal Medicine Cardiovascular Disease
DX: Z95.5 Presence of coronary angioplasty implant and graft (principal); I25.5 Ischemic cardiomyopathy; I25.10 Atherosclerotic heart disease of native coronary artery without angina pectoris; Z98.61 Coronary angioplasty status; I21.4 Non-ST elevation (NSTEMI) myocardial infarction; I31.39 Other pericardial effusion (noninflammatory); Z86.73 Personal history of transient ischemic attack (TIA), and cerebral infarction without residual deficits; E78.5 Hyperlipidemia, unspecified; F17.211 Nicotine dependence, cigarettes, in remission; I67.1 Cerebral aneurysm, nonruptured
CPT/HCPCS: 93798

== ENCOUNTER → 2024-01-24 | Outpatient (CLI) | payer MEDICARE, MEDICAID, SELFPAY ==
[2023-09-18 10:02] VITALS: BMI 22.4
--- NOTE | 2024-01-24 08:21 | MRI_ITS ---
EXAM: MR CERVICAL SPINE WITHOUT INTRAVENOUS CONTRAST CLINICAL INDICATION: cervical myelopathy TECHNIQUE: Multiplanar and multisequence MR images of the cervical spine without intravenous contrast were performed. COMPARISON: No relevant prior studies available. FINDINGS: VERTEBRAE: Normal. Normal vertebral bodies and posterior elements. Normal alignment. Normal craniocervical junction and cervicothoracic junction. No spondylolisthesis. There is preservation of the normal cervical lordosis. SPINAL CORD: Unremarkable in signal and morphology. SOFT TISSUES: Normal. No prevertebral soft tissue swelling. No acute fracture or subluxation. No bone marrow edema. LYMPH NODES: Normal. There is no cervical adenopathy. DISCS/SPINAL CANAL/NEURAL FORAMINA: C2-C3: Normal. Normal disc height and morphology. Normal spinal canal. Normal neuroforamina. C3-C4: No disc space narrowing. Mild disc bulging without spinal stenosis. Narrowing of the right neural foramen related to uncinate joint hypertrophy. C4-C5: Prominent disc space narrowing. Posterior disc osteophyte complex present without spinal stenosis. Narrowing of the neural foramina bilaterally related to uncinate joint hypertrophy. C5-C6: Moderate disc space narrowing. Mild right posterior lateral disc protrusion causes narrowing of the right foramen. Normal caliber spinal canal left neural foramen. C6-C7: Mild disc space narrowing. Broad-based disc protrusion and uncinate joint hypertrophy result in bilateral neural foraminal narrowing. No significant spinal stenosis. C7-T1: Normal. Normal disc height and morphology. Normal spinal canal. Normal neuroforamina. MRI/Spine Cervical (Routine) IMPRESSION: 1. Multilevel spondylosis without spinal stenosis. 2. Multilevel neural foraminal stenoses as described above. 3. Normal cervical cord. Electronically Signed: Chandler Clifford MD at 15:52 EDT ,
== END | disposition home or self-care (01) ==
LOC: MRI 08:08
PROVIDERS: PCP Family Medicine; Referring Provider Orthopaedic Surgery Orthopaedic Surgery of the Spine; Visit Provider Orthopaedic Surgery Orthopaedic Surgery of the Spine
DX: G95.9 Disease of spinal cord, unspecified (principal)
CPT/HCPCS: 72141

== ENCOUNTER → 2024-02-20 | Outpatient (CLI) | payer MEDICARE, MEDICAID, SELFPAY ==
[2023-09-18 10:02] VITALS: BMI 22.4
--- NOTE | 2024-02-20 17:30 | STRESSREP_ITS ---
Stress Test Report Exercise myocardial perfusion stress test. 68-year-old lady with a history of chest pain Stress protocol: Resting EKG demonstrates normal sinus rhythm with a rate of 62 bpm resting blood pressure is 92/64 mmHg. The patient exercised according to the regular Urdy protocol for a total duration of 9 minutes and 31 seconds attaining a maximum heart rate of 131 bpm which was 85% of maximum predicted heart rate; the maximum workload was 11.7 metabolic equivalents. At rest there were no ST or T wave changes noted to suggest ischemia and at peak exercise upsloping ST changes only were noted which did not meet the criteria for ischemia. No clinical angina was noted the test was terminated due to the target heart rate being achieved/fatig ue. The peak blood pressure was 132/80 mmHg. Rate-pressure product was 15,800. Myocardial perfusion protocol. 11.2 mCi of technetium 99m sestamibi was injected at rest. The patient exercised according to regular Rudy protocol for total duration of 9-1/2 minutes and at peak exercise 33.3 mCi of technetium 99m sestamibi was injected stress images were obtained stress and rest images were reconstructed in comparing the short axis vertical long and horizontal long axis. Gated images were also obtained. Perfusion SPECT analysis: Review of the stress images demonstrate normal uptake of tracer noted in all areas of the myocardium. The resting images similarly demonstrate normal uptake of tracer noted in all areas of the myocardium. No areas of reversibility are noted to suggest ischemia no previous infarct was noted. Gated SPECT analysis: The gated ejection fraction is 76%. Conclusion: Normal exercise myocardial perfusion stress test at a high workload Preserved ejection fraction.
== END | disposition home or self-care (01) ==
LOC: CVS 06:22
PROVIDERS: PCP Family Medicine; Referring Provider Physician Assistant Medical; Visit Provider Physician Assistant Medical
DX: I25.10 Atherosclerotic heart disease of native coronary artery without angina pectoris (principal); Z98.61 Coronary angioplasty status
CPT/HCPCS: 78452; 93017; A9500; A4216

== ENCOUNTER 2024-08-27 15:27 | Emergency (ER) | payer MEDICARE, MEDICAID, SELFPAY ==
[2023-09-18 10:02] VITALS: BMI 22.4
[2024-08-27 15:29] VITALS: BP 115/80; PULSE 105; RESP 20; TEMP 36.5; O2SAT 99; BMI 19.5
--- NOTE | 2024-08-27 15:32 | EKG12_ITS ---
Test Reason : cp/sob Blood Pressure : */* mmHG Vent. Rate : 84 BPM Atrial Rate : 84 BPM P-R Int : 148 ms QRS Dur : 80 ms QT Int : 358 ms P-R-T Axes : 76 65 62 degrees QTcB Int : 423 ms Normal sinus rhythm Normal ECG Confirmed by JAVIER BARBOSA, MANOLO ([id number]), science editor JAELYN PAYNE ([id number]) on 08/28/2024 9:42:52 AM Referred By: Confirmed By: MANOLO HERRERA MD
[2024-08-27 15:45] LABS: Absolute Lymphocyte Count 2.15 X10^3/uL (0.83-4.51); Absolute Neutrophil Count 5.9 X10^3/uL (2.0-7.7); Basophil# 0.07 X10^3/uL; Basophil% 0.8 % (0-1); Eosinophil# 0.14 X10^3/uL; Eosinophils% 1.6 % (0-5); Hematocrit 39.2 % (37-47); Hemoglobin 13.6 g/dL (12.0-15.0); Lymphocyte # 2.15 X10^3/ul (0.83-4.51); Lymphocyte % 24.3 % (19-41); Mean Corp Hgb Conc 34.7 g/dL (32-36); Mean Corpuscular Hgb 31.8 pg (27.0-32.0); Mean Corpuscular Volume 91.6 fL (81-99); Mean Platelet Vol. 10.3 fl (6.2-12.0); Monocyte# 0.59 X10^3/uL; Monocyte% 6.7 % (0-10); NRBC Flagged by Analyzer 0 % (0-5); Neutrophil # 5.86 X10^3/uL (2.7-7.7); Neutrophil % 66.3 % (47-70); Platelet Count 360 K/mm3 (150-450); RBC Distribution Width CV 13.6 % (11.6-14.6); RBC Distribution Width SD 45.8 fl (35.1-43.9); Red Blood Count 4.28 M/mm3 (4.2-5.4); White Blood Count 8.8 K/mm3 (4.4-11.0)
--- NOTE | 2024-08-27 16:02 | EDS_ITS ---
HPI History of Present Illness Chief Complaint: Shortness of Breath Detail of Chief Complaint: Back pain and shortness of breath Informant: patient Narrative Narrative: Patient presents the emergency department complaint of intermittent back pain in her mid back for about 2 weeks off-and-on. At times it is a sharp stabbing pain and lasts a few seconds at times lasts longer than that. Today she developed the pain and took a nitro and it seemed to then get better but then the pain came back. She denies any anterior chest pain. She has been more short of breath over the last couple of days. She denies fever or cough. She denies u rinary symptoms. Patient states that she has a bad back. She has had prior coronary stenting last stenting was in 2022 and has 3 stents. She has history of COPD. She denies recent travel or surgery. No history of PE or DVT. [facility] Medical History History of Lindo's palsy Peptic ulcer disease History of kidney stones Pulmonary nodule History of pleural effusion History of pneumonia Emphysema of lung COPD (chronic obstructive pulmonary disease) History of bronchitis Asthma History of TIA (transient ischemic attack) (06/2018) Coronary artery calcification seen on CAT scan (07/2020) Pericardial effusion Hiatal hernia History of CVA (cerebrovascular accident) PTSD (post-traumatic stress disorder) GERD (gastroesophageal reflux disease) History of Lyme disease Osteoarthritis Thyroid nodule Crenshaw esophagus IBS (irritable bowel syndrome) Panlobular emphysema Hyperlipidemia Insomnia Home Medications ?Medication ?Instructions ?Recorded ?Last Taken ?Type albuterol sulfate 90 mcg/actuation 2 puff inhalation Q 6H PRN 09/23/20 Unknown History aerosol inhaler SHORTNESS OF BREATH baclofen 10 mg tablet 10 mg PO QHS MUSCLE SPASMS 0 09/23/20 04/01/23 History fluticasone 500 mcg-salmeterol 50 1 inh inhalation BID SHORTNESS OF 09/23/20 05/10/23 History mcg/dose blistr powdr for BREATH inhalation (Advair Diskus) montelukast 10 mg tablet 10 mg PO DAILY ALLERGIES 05/10/23 History (Singulair) vitamin B complex (B 1 tab PO DAILY SUPPLEMENT 04/02/23 History Complex-Vitamin B12 tablet) calcium 600 mg (as 2 cap PO DAILY SUPPLEMENT 04/02/23 History carbonate)-vitamin D3 25 mcg (1,000 unit) capsule cholecalciferol (vitamin D3) 125 125 mcg PO DAILY SUPP LEMENT 11/14/21 04/02/23 History mcg (5,000 unit) capsule coenzyme Q10 75 mg capsule (Ultra 75 mg PO DAILY SUPPL EMENT 07/25/22 04/02/23 History CoQ10) diphenhydramine HCl 25 mg capsule 25 mg PO QHS SLEEP 0 07/25/22 04/01/23 History (Benadryl) garlic 1,000 mg capsule (garlic 2,000 mg PO DAILY SUPP LEMENT 07/25/22 04/02/23 History oil) albuterol sulfate 2.5 mg/3 mL 2.5 mg inhalation BID SH ORTNESS OF 04/02/23 04/02/23 History (0.083 %) solution for nebulization BREATH amlodipine 5 mg tablet 5 mg PO QHS BLOOD PRESSURE 1 06/02/22 05/10/23 History carboxymethylcellulose 0.5 1 drp EACH EYE QHS DRY EYE RELIEF 04/02/23 04/01/23 History %-glycerin 0.9 % eye drops (Lubricant Eye (cmc-glycerin)) diazepam 2 mg tablet 1 mg PO DAILY PRN ANXIETY 04/01/23 History ipratropium bromide 0.02 % 0.5 mg inhalation BID SHORT NESS OF 04/02/23 04/02/23 History solution for inhalation BREATH omeprazole 20 mg capsule,delayed 20 mg PO DAILY ACID R EFLUX 04/02/23 05/10/23 History release nitroglycerin 0.4 mg sublingual 0.4 mg sublingual Q5-1 5M PRN chest 01/02/24 Unknown Rx tablet (Nitrostat) pain #25 tabs aspirin 81 mg tablet,delayed 81 mg PO DAILY HEART HEAL TH 01/03/24 Unknown History release (Adult Aspirin Regimen) ticagrelor 90 mg tablet (Brilinta) 90 mg PO BID #180 T ABLETS 04/13/24 Unknown Rx metoprolol succinate 25 mg 25 mg PO DAILY #90 tabs Unknown Rx tablet,extended release 24 hr rosuvastatin 40 mg tablet 40 mg PO QHS CHOLESTEROL #9 0 tabs 05/11/24 Unknown Rx torsemide 20 mg tablet 20 mg PO .COMPLEX #3 tabs Unknown Rx Allergy/AdvReac Type Severity Reaction Status Date / Time epinephrine Allergy Severe Tachychardi Verified 08/27/24 15:28 a/Syncope pregabalin (From Lyrica) Allergy Severe Facial&Oral Verified 08/27/24 15:28 Swelling tizanidine (From Zanaflex) Allergy Severe Anaphylaxis Verified 08/27/24 15:28 nitrofurantoin (From Allergy Other Verified 08/27/24 15:28 Macrobid) atorvastatin (From Lipitor) AdvReac Severe Pain in BL Verified 08/27/24 15:28 arms hydroxyzine (From Vistaril) AdvReac Severe Inrease in Verified 08/27/24 15:28 BP Sulfa (Sulfonamide AdvReac Severe Anaphylaxis Verified 08/27/24 15:28 Antibiotics) temazepam (From Restoril) AdvReac Severe Facial & Verified 08/27/24 15:28 Oral Swelling zafirlukast (From Accolate) AdvReac Severe Abdominal Verified 08/27/24 15:28 pain & SOB furosemide (From Lasix) AdvReac Unknown Muscle Verified 08/27/24 15:28 Cramps misoprostol (From Arthrotec) AdvReac Unknown Liver Verified 08/27/24 15:28 Damage morphine AdvReac Unknown 'Insane' Verified 08/27/24 15:28 oseltamivir (From Tamiflu) AdvReac Unknown strips Verified 08/27/24 15:28 skin off throat' diclofenac (From Inflatherm AdvReac unkown Verified 08/27/24 15:28 (diclofenac-trolam)) trolamine salicylate (From AdvReac unkown Verified 08/27/24 15:28 Inflatherm (diclofenac-trolam)) Family History Mother COPD (chronic obstructive pulmonary disease) Lupus Father Glioblastoma Grandmother Pancreatic cancer Grandmother Breast cancer Grandfather Heart disease Aunt Cancer Aunt Cancer Surgical History Stented coronary artery (05/10/23) History of repair of rectocele History of breast surgery History of section History of herniorrhaphy History of esophagogastroduodenoscopy History of colonoscopy History of facial surgery History of tonsillectomy History of vaginal surgery History of cholecystectomy History of eye surgery Social History Smoking Status: Former smoker pack-years: 31 Tobacco: How many years used: 21 Electronic Cigarette Use: not used how long ago did patient quit smoking: Quit in 1989 second hand exposure: Yes alcohol intake: current alcohol intake frequency: a few times a month Alcohol type: wine substance use type: does not use ROS ROS ED Review of Systems ROS Unobtainable: other Constitutional Constitutional ED: Reports lethargy; Denies chills, fever(s), sweats or weight loss Eyes Eyes: Denies blurry vision, change in vision or diplopia ENT ENT ED: Denies rhinorrhea or sore throat Cardiovascular Cardiovascular: Denies chest pain, orthopnea or racing heartbeat Respiratory/Chest Respiratory/Chest: Reports dyspnea and dyspnea on exertion; Denies cough, orthopnea or sputum Gastrointestinal Gastrointestinal: Denies abdominal pain, diarrhea, nausea or vomiting Genitourinary Genitourinary ED: Denies dysuria, hematuria or urinary frequency Musculoskeletal Musculoskeletal: Reports back pain; Denies arthralgias, myalgias or neck pain Integumentary Denies abscess, Abrasions or rash Neurologic Neurologic: Denies headache(s) or weakness Psychiatric Psychiatric: Denies anxiety, depression or suicidal thoughts Endocrine Endocrinology: Denies polydipsia, polyphagia or polyuria Hematologic/Lymphatic Hematologic/Lymphatic: Denies easy bleeding, easy bruising or lymphadenopathy Allergic/Immunologic Allergic/Immunologic ED: Denies mouth swelling, tongue swelling or urticaria EXAM Physical Exam Const Vital Signs: 08/27/24 15:29 08/27/24 16:10 08/27/24 16:15 Temperature 97.7 F L Temperature Source Temporal Pulse Rate 105 H Respiratory Rate 20 H Respiratory Effort Normal Non-Labored Blood Pressure 115/80 Blood Pressure Mean 91 Pulse Ox 99 Oxygen Delivery Method Room Air Room Air Room Air 08/27/24 17:28 Temperature Temperature Source Pulse Rate 67 Respiratory Rate 18 Respiratory Effort Blood Pressure 108/89 H Blood Pressure Mean 95 Pulse Ox 99 Oxygen Delivery Method Room Air Positive well nourished and well developed General Appearance ED: well developed and NAD HEENT Reports TM's clear and moist mucous membranes normocephalic and atraumatic; Negative for trauma or tenderness Tympanic Membrane ED: Yes TM's clear Eyes PERRL and EOMs intact bilaterally General Eye ED: Negative for pale conjunctiva or scleral icterus Neck no lymphadenopathy, supple and no JVD General: Negative for tenderness Chest Wall inspection of chest normal and palpation of chest normal Chest: Negative for tenderness Resp normal respiratory effort and clear to auscultation bilaterally Effort and Inspection: Negative for respiratory distress or pain with movement Auscultation: Negative for rhonchi, wheezes or diminished lung sounds Cardio regular rate, regular rhythm, S1 normal heart sound, S2 normal heart sound and no murmurs Peripheral Pulses: pulses 2+ throughout GI normal to inspection, nondistended, normoactive bowel sounds, soft to palpation, non-tender, non-distended and no masses Back/Spine no CVA tenderness and no thoracic nor lumbar tenderness Back/Spine Narrative: No real tenderness over the thoracic or lumbar spine. No significant tenderness over the ribs posteriorly although she describes the pain is more mid back and lateral to the spine. There is no erythema or warmth noted to her back. No radicular symptoms. Extremity normal to inspection General Extremety ED: Negative for edema General Extremity: Negative for edema Neuro oriented x3, CN's II-XII intact bilaterally, no sensory deficits noted and gait normal Sensorium / Orientation: awake, alert, oriented to person, oriented to place and oriented to time Motor Exam: strength 5/5 throughout and strength abnormal Psych mental status grossly normal Skin no rashes or lesions noted and no wounds MDM MDM MDM Narrative Medical decision making narrative: Patient presents with pain in her back off-and-on for the last 2 weeks. Clinically low suspicion for cardiac etiology. She looks well on exam. Hard time reproducing her pain with palpation of her back. IV line established. EKG obtained shows sinus rhythm with rate of 84 bpm with no acute ST segment changes. CBC with differential white count of 8.8 with hemoglobin 13.6 and platelet count of 360. Chemistries unremarkable. BUN 13 and creatinine 1.24. Troponin was normal at 8. Urinalysis was normal. 1 view chest x-ray was unremarkable. Discussed results with patient. I do not feel she is having acute coronary syndrome. Her D-dimer also was normal at 0.27. 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 She does see a back specialist and she has had MRI recently to evaluate her back that did not show any surgical type abnormalities. Patient does not want thing for pain for home. Lab Data Attestation: I reviewed the patient's lab results. Labs: Laboratory Results - last 24 hr 08/27/24 08/27/24 15:38 16:21 WBC 8.8 RBC 4.28 Hgb 13.6 Hct 39.2 MCV 91.6 MCH 31.8 MCHC 34.7 RDW Std Deviation 45.8 H RDW Coeff of Day 13.6 Plt Count 360 MPV 10.3 Immature Gran % (Auto) 0.300 Neut % (Auto) 66.3 Lymph % (Auto) 24.3 [place] % (Auto) 6.7 Eos % (Auto) 1.6 Baso % (Auto) 0.8 Absolute Neuts (auto) 5.9 Absolute Lymphs (auto) 2.15 Nucleated RBC % 0 D-Dimer Quant (PE/DVT) 0.27 Sodium 138 Potassium 4.1 Chloride 105 Carbon Dioxide 21.0 Anion Gap 11 BUN 13 Creatinine 1.24 H Estim Creat Clear Calc 32.12 L Est GFR (MDRD) Non-Af 47 L BUN/Creatinine Ratio 10.6 Glucose 154 H Calcium 9.4 Troponin T High Sens 8 Urine Color Yellow Urine Clarity Clear Urine pH 7.0 Ur Specific [place] 1.010 Urine Protein 100 H Urine Glucose (UA) Normal Urine Ketones Negative Urine Occult Blood 25 H Urine Nitrite Negative Urine Bilirubin Negative Urine Urobilinogen Normal Ur Leukocyte Esterase Negative Radiography Diagnostic Testing: Clinical Impression(s) from Imaging Studies Chest X-Ray 08/27/24 16:28 IMPRESSION: No acute process in the chest. Reading [facility] 1 view chest x-ray obtained interpreted by myself as no evidence of infiltrate or pneumothorax or acute disease process. Radiology in agreement. EKG Initial EKG: Attestation: I personally reviewed and interpreted this EKG as follows: Comments: Sinus rhythm with ventricular rate of 84 bpm with no acute ST segment changes. Discharge Plan Triage Chief Complaint: Shortness of Breath ED Provider: Frank Winslow Dx/Rx/DC Orders Clinical Impression: Back pain Instructions: ED Back Pain (Acute or Chronic) Prescriptions: No Action montelukast [Singulair] 10 mg tablet 10 mg PO DAILY albuterol sulfate 90 mcg/actuation HFA aerosol inhaler 2 puff inhalation Q6H PRN (Reason: SHORTNESS OF BREATH ) baclofen 10 mg tablet 10 mg PO QHS vitamin B complex [B Complex-Vitamin B12] Tablet 1 tab PO DAILY fluticasone propion-salmeterol [Advair Diskus] 500-50 mcg/dose blister with device 1 inh inhalation BID aspirin [Adult Aspirin Regimen] 81 mg tablet,delayed release (DR/EC) 81 mg PO DAILY calcium carbonate-vitamin D3 600 mg-25 mcg (1,000 unit) capsule 2 cap PO DAILY cholecalciferol (vitamin D3) 125 mcg (5,000 unit) capsule 125 mcg PO DAILY Ultra CoQ10 75 mg capsule 75 mg PO DAILY garlic [garlic oil] 1,000 mg capsule 2,000 mg PO DAILY diphenhydramine HCl [Benadryl] 25 mg capsule 25 mg PO QHS nitroglycerin [Nitrostat] 0.4 mg tablet, sublingual 0.4 mg sublingual Q5-15M PRN (Reason: chest pain) Qty: 25 3RF Rx Instructions: do not exceed 3 doses per episode albuterol sulfate 2.5 mg /3 mL (0.083 %) solution for nebulization 2.5 mg inhalation BID amlodipine 5 mg tablet 5 mg PO QHS omeprazole 20 mg capsule,delayed release(DR/EC) 20 mg PO DAILY ipratropium bromide 0.02 % solution 0.5 mg inhalation BID Patient Comments: USE 1 VIAL VIA NEBULIZER TWICE DAILY THREE TIMES DAILY NEEDED FOR WHEEZING or SHORTNESS OF BREATH over 5-15 MINUTES diazepam 2 mg tablet 1 mg PO DAILY PRN (Reason: ANXIETY ) Lubricant Eye (cmc-glycerin) 0.5-0.9 % drops 1 drp EACH EYE QHS Brilinta 90 mg tablet 90 mg PO BID Qty: 180 3RF metoprolol succinate 25 mg tablet extended release 24 hr 25 mg PO DAILY Qty: 90 3RF rosuvastatin 40 mg tablet 40 mg PO QHS Qty: 90 3RF torsemide 20 mg tablet 20 mg PO .COMPLEX Qty: 3 0RF Rx Instructions: 20 mg orally q day X 3 days; Primary Care Provider: Rosy Lazo Referrals: Rosy Lazo DO [Primary Care Provider] - 5-7 Days Print Language: Welsh Disposition Disposition: Home, Self Care
[2024-08-27 16:10] VITALS: O2SAT 96
[2024-08-27 16:14] LABS: Troponin T High Sensitivity 8 ng/L (<=14)
[2024-08-27 16:15] LABS: Anion Gap 11 (5-15); BUN 13 mg/dL (4-19); BUN/Creat Ratio 10.6 RATIO (10-20); Calcium,Total 9.4 mg/dL (7.6-11.0); Chloride 105 mmol/L (98-108); Creatinine, Serum 1.24 mg/dL (0.70-1.20); EST Glomerular Filtration Rate 47 (>60); Estimated Creatinine Clearance 32.12 ml/min (50-250); Glucose 154 mg/dL (70-99); Potassium 4.1 mmol/L (3.3-5.1); Sodium Level 138 mmol/L (133-145)
--- NOTE | 2024-08-27 16:28 | RAD_ITS ---
PROCEDURE: CHEST 1 VIEW (PORTABLE) 08/27/2024 REASON FOR EXAM: CHEST PAIN TECHNIQUE: Frontal view of the chest. COMPARISON: None. FINDINGS: Hardware: None. Heart: Normal size and contour. Lungs: Lungs are clear. Bones: Unremarkable Other: RAD/Chest 1 View (Portable) IMPRESSION: No acute process in the chest. Reading [facility]
[2024-08-27 16:31] LABS: Bacteria 0 SEEN /hpf (None Seen); Mucous, Urine 0 SEEN /hpf (<or=2+)
[2024-08-27 17:05] LABS: Color, Urine Yellow (Yellow); Glucose, Dipstick Normal (Normal); Ketone-Dipstick Negative (Negative); Leukocyte Esterase-Dipstick Negative /ul (Negative); Nitrite-Dipstick Negative (Negative); Occult Blood-Urine 25 /ul (Negative); Protein-Dipstick 100 mg/dl (Negative); Urine Bilirubin Dipstick Negative (Negative); Urine Clarity Clear (Clear); Urine Urobilinogen Normal (Normal)
[2024-08-27 17:24] LABS: D-Dimer Quantitative (DVT/PE) 0.27 FEU/ug/m (0.27-0.49)
[2024-08-27 17:28] VITALS: BP 108/89; PULSE 67; RESP 18; O2SAT 99
[2024-08-27 17:54] VITALS: BP 108/64; PULSE 65; RESP 17; TEMP 36.3; O2SAT 97
[2024-08-27 18:00] LABS: Red Blood Cells-Urine 0-5 SEEN /hpf (0-5); Squamous Epithelial Cells - UA 0-5 SEEN /hpf (5-10); Transitional Epithelial - Ur 0-5 SEEN /hpf (0-5); White Blood Cells 0-5 SEEN /hpf (0-5)
[2024-08-27 18:17] LABS: Troponin T High Sens 2 HR 8 ng/L (<=14)
== END 2024-08-27 17:58 | disposition home or self-care (01) ==
PROVIDERS: Emergency Provider Emergency Medicine; PCP Family Medicine; Visit Provider Emergency Medicine
DX: M54.9 Dorsalgia, unspecified (principal); J44.9 Chronic obstructive pulmonary disease, unspecified; Z87.891 Personal history of nicotine dependence; E78.5 Hyperlipidemia, unspecified; I25.10 Atherosclerotic heart disease of native coronary artery without angina pectoris; Z86.73 Personal history of transient ischemic attack (TIA), and cerebral infarction without residual deficits; Z95.5 Presence of coronary angioplasty implant and graft; Z90.49 Acquired absence of other specified parts of digestive tract; R06.09 Other forms of dyspnea
CPT/HCPCS: 71045; 80048; 81001; 84484; 85025; 85379; 93005; 99284; A4216

== ENCOUNTER → 2025-05-11 | Outpatient (CLI) | payer MEDICARE, MEDICAID, SELFPAY ==
[2023-09-18 10:02] VITALS: BMI 22.4
--- NOTE | 2025-05-11 10:47 | MRI_ITS ---
PROCEDURE: SPINE LUMBAR (ROUTINE) 05/11/2025 REASON FOR EXAM: LUMBAR RADICULOPATHY TECHNIQUE: Procedure Code: [id number] Modality: MR Procedure: SPINE LUMBAR (ROUTINE) COMPARISON: None available. FINDINGS: Please note that there is lumbosacral transitional vertebra anatomy with lumbarization of S1. For the purposes of this report, the most caudal rectangular vertebral body will be designated L5. The next most caudal trapezoidal shaped vertebral body will be designated S1. The normal lumbar lordosis is maintained. The lumbar vertebral bodies are normal in height. The lumbar vertebral bodies are normal in alignment. The lumbar bone marrow signal is within normal limits. Multilevel disc desiccation. Intervertebral disc space height loss most prominent at L5-S1. There is no evidence of signal abnormality in the imaged distal spinal cord. The conus medullaris terminates at the level of L1-L2. T12-L1: No significant spinal canal stenosis or neural foraminal narrowing. L1-L2: No significant spinal canal stenosis or neural foraminal narrowing. L2-L3: No significant spinal canal stenosis or neural foraminal narrowing. L3-L4: Disc bulge. No significant spinal canal stenosis or neural foraminal narrowing. L4-L5: Disc bulge. No significant spinal canal stenosis or neural foraminal narrowing. L5-S1: No significant spinal canal stenosis or neural foraminal narrowing. MRI/Spine Lumbar (Routine) IMPRESSION: No high-grade spinal canal or neural foraminal stenosis in the lumbar spine. Reading Location: [id number]
== END | disposition home or self-care (01) ==
LOC: OPMRI 10:45
PROVIDERS: PCP Family Medicine; Referring Provider Orthopaedic Surgery Orthopaedic Surgery of the Spine; Visit Provider Orthopaedic Surgery Orthopaedic Surgery of the Spine
DX: M54.16 Radiculopathy, lumbar region (principal)
CPT/HCPCS: 72148